=== PATIENT | male | born 1945 ===

== ENCOUNTER 2017-01-14 11:12 | Inpatient (IN) | payer OTHER ==
[2017-01-14 11:17] VITALS: BMI 25.9
--- NOTE | 2017-01-14 13:38 | CP.PCM.CON ---
Past Patient History - Infectious Disease Hx of Infectious Diseases: None - Past Medical History & Family History Past Medical History?: No - Past Social History Smoking Status: Former Smoker - CARDIAC Hx Hypertension: Yes - ENDOCRINE/METABOLIC Hx Endocrine Disorders: Yes (DM) - MUSCULOSKELETAL/RHEUMATOLOGICAL Hx Falls: No - PSYCHIATRIC Hx Substance Use: No - SURGICAL HISTORY Other/Comment: Bilateral TMA - ANESTHESIA Hx Anesthesia: Yes Hx Anesthesia Reactions: No Meds Allergies/Adverse Reactions: Allergies Allergy/AdvReac Type Severity Reaction Status Date / Time No Known Allergies Allergy Verified 04/23/16 11:34 Results - Vital Signs Recent Vital Signs: Last Vital Signs Temp 98.4 F 01/14/17 11:18 Pulse 86 01/14/17 11:18 Resp 19 01/14/17 11:18 BP 149/64 01/14/17 11:18 Pulse Ox 100 01/14/17 11:18
[2017-01-14 13:39] LABS: BASO # 0.1 K/uL (0.0-0.2); BASO % 0.7 % (0.0-2.0); EOS # 0.1 K/uL (0.0-0.7); EOS % 0.6 % (0.0-4.0); HEMATOCRIT 33.6 % (35.0-51.0); LYMPH # 0.9 K/uL (1.0-4.3); LYMPH % 8.3 % (20.0-40.0); MEAN CELL VOLUME 81.7 fl (80.0-94.0); MEAN CORPUSCULAR HGB CONC 35.6 g/dL (33.0-37.0); MEAN PLATELET VOLUME 6.6 fl (7.2-11.7); MONO % 9.8 % (0.0-10.0); NEUT # 8.6 K/uL (1.8-7.0); NEUT % 80.6 % (50.0-75.0); NRBC % 0.1 % (0.0-0.0); RED CELL DISTRIBUTION WIDTH 14.1 % (11.5-14.5); WHITE BLOOD COUNT 10.7 K/uL (4.8-10.8)
[2017-01-14 13:45] LABS: CHLORIDE 86 mmol/L (98-107); SODIUM 128 mmol/l (132-148)
[2017-01-14 13:46] LABS: POTASSIUM 3.9 MMOL/L (3.6-5.0)
[2017-01-14 13:48] LABS: ALKALINE PHOSPHATASE 74 U/L (38-126); ALT/SGPT 29 U/L (21-72); AST/SGOT 36 U/L (17-59); BLOOD UREA NITROGEN 20 mg/dl (9-20); CARBON DIOXIDE 28 mmol/L (22-30); GFR AFRICAN-AMERICAN > 60; GLUCOSE,RANDOM 271 mg/dL (75-110); TOTAL PROTEIN 7.4 G/DL (6.3-8.2)
[2017-01-14 13:49] LABS: CALCIUM 9.1 mg/dL (8.4-10.2)
--- NOTE | 2017-01-14 13:56 | ED PDOC ---
Lower Extremity Pain/Injury Time Seen by Provider: 01/14/17 12:14 Chief Complaint (Nursing): Lower Extremity Problem/Injury Additional Complaint(s): 71yo With DM and HTN 3d ago noted to lower right leg with redness and burning and redness pain with ulcer to bottom of TMA stump. no fever chills no nausea vomiting. - Risk Factors DVT Risk Factors: Pos: None Past Medical History Reviewed: Historical Data, Nursing Documentation, Vital Signs Vital Signs: Last Vital Signs Temp 98.4 F 01/14/17 11:18 Pulse 86 01/14/17 11:18 Resp 19 01/14/17 11:18 BP 149/64 01/14/17 11:18 Pulse Ox 100 01/14/17 11:18 - Medical History PMH: Diabetes, HTN - Family History Family History: States: No Known Family Hx - Home Medications Home Medications: Ambulatory Orders Medication Instructions Recorded Aspirin [Ecotrin] 81 mg PO QPM 04/23/16 Atorvastatin [Lipitor] 20 mg PO DAILY 04/23/16 Clopidogrel [Plavix] 75 mg PO QPM 04/23/16 Glipizide [Glipizide Xl] 10 mg PO BID 04/23/16 Lisinopril/Hydrochlorothiazide 1 tab PO BID 04/23/16 [Zestoretic 20-25 mg Tablet] MetFORMIN [glucoPHAGE] 1,000 mg PO BID 04/23/16 Multivitamin [Multi-Vitamin Daily] 1 tab PO DAILY 04/23/16 [place]-3 Fatty Acids/Fish Oil [Fish 1 gm PO BID 04/23/16 Oil 1,000 mg Capsule] amLODIPine [Norvasc] 10 mg PO QPM 04/23/16 - Allergies Allergies/Adverse Reactions: Allergies Allergy/AdvReac Type Severity Reaction Status Date / Time No Known Allergies Allergy Verified 04/23/16 11:34 Review of Systems ROS Statement: Except As Marked, All Systems Reviewed And Found Negative Constitutional: Negative for: Fever, Chills Respiratory: Negative for: Cough, Shortness of Breath Gastrointestinal: Negative for: Nausea, Vomiting Physical Exam - Reviewed Nursing Documentation Reviewed: Yes Vital Signs Reviewed: Yes - Physical Exam Appears: Positive for: Well, Non-toxic, No Acute Distress Head Exam: Positive for: ATRAUMATIC, NORMAL INSPECTION, NORMOCEPHALIC Skin: Positive for: Warm Cardiovascular/Chest: Positive for: Regular Rate, Rhythm Respiratory: Positive for: CNT, Normal Breath Sounds Extremity: Positive for: Other (right lower leg-reddness, warmth, tenderness strekaing no flucutance mild swelling. ulcer noted to botto of stump no drainage ) Neurologic/Psych: Positive for: Alert, Oriented - Laboratory Results Result Diagrams: 01/14/17 13:25 01/14/17 13:25 - ECG O2 Sat by Pulse Oximetry: 100 - Progress ED Course And Treament: pt is ANU Malone pt and will get evaluated by podiatry Medical Decision Making Medical Decision Making: Pt will be admitted for cellulites under MD Eli with podiatry consult and Abdoulaye SULLIVAN consult Disposition - Clinical Impression Clinical Impression: Cellulitis - Patient ED Disposition Is Patient to be Admitted: Yes - Disposition Disposition Time: 14:51 Condition: STABLE - Pt Status Changed To: Hospital Disposition Of: Inpatient - Admit Certification Admit to Inpatient:: After my assessment, the patient will require hospitalization for at least two midnights. This is because of the severity of symptoms shown, intensity of services needed, and/or the medical risk in this patient being treated as an outpatient.
[2017-01-14 13:57] LABS: ALB/GLOB RATIO 1.2 (1.0-2.1)
[2017-01-14 14:03] LABS: PLATELET COUNT 356 K/uL (130-400)
[2017-01-14 14:09] LABS: PARTIAL THROMBOPLASTIN TIME 30.4 SECONDS (23.3-32.5)
[2017-01-14 14:23] LABS: BILIRUBIN,TOTAL 0.8 mg/dl (0.2-1.3)
[2017-01-14 14:29] LABS: NEUTROPHIL 89 % (42-75); REACTIVE LYMPHOCYTES 2 % (0-0); TOTAL CELLS COUNTED 100
--- NOTE | 2017-01-14 15:10 | CP.PCM.CON ---
History of Present Illness - History of Present Illness History of Present Illness: 71 year old male with PMHx of DM ,HTN, Hyperlipedemia presents to the ED with complains of redness to right leg for 3 days. He states that three days ago he went for a walk and then started noticing redness to his right leg. He states it has gotten worse in the past [address] Malone in office today who sent him to the ED. He admits to burning pain on the leg. He admits to chills, but denies n/v/f/sob/cp. Past Patient History - Infectious Disease Hx of Infectious Diseases: None - Past Medical History & Family History Past Medical History?: No - Past Social History Smoking Status: Former Smoker - CARDIAC Hx Hypertension: Yes - ENDOCRINE/METABOLIC Hx Endocrine Disorders: Yes (DM) - MUSCULOSKELETAL/RHEUMATOLOGICAL Hx Falls: No - PSYCHIATRIC Hx Substance Use: No - SURGICAL HISTORY Other/Comment: Bilateral TMA - ANESTHESIA Hx Anesthesia: Yes Hx Anesthesia Reactions: No Meds Allergies/Adverse Reactions: Allergies Allergy/AdvReac Type Severity Reaction Status Date / Time No Known Allergies Allergy Verified 04/23/16 11:34 Physical Exam - Constitutional Appears: Well, Non-toxic, No Acute Distress - Extremities Exam Additional comments: VASC: DP pulse 1/4, PT pulse 2/4, Temperature gradient runs warm to warm distal to proximal. NEURO: Gross sensation diminished. ORTHO: TMA stumpes noted b/l. Mild pain on palpation to right leg or foot. DERM: Ulceration measure approximately 0.4 cm x 0.4 cm x 0.3 cm noted on the plantar aspect of the right foot around the 4th and 5th metatarsal,base is granular, periwound is hyperkeratotic. No probe to bone, scant amount of sanguineous drainage noted. No tenderness, no malodor. Right foot and Right lee are erythematous with non-pitting edema with increased warmth noted. No drainage, no purulences, no fluctuance. - Neurological Exam Neurological exam: Alert, Oriented x3 - Psychiatric Exam Psychiatric exam: Normal Affect, Normal Mood Results - Vital Signs Recent Vital Signs: Last Vital Signs Temp 98.4 F 01/14/17 11:18 Pulse 86 01/14/17 11:18 Resp 19 01/14/17 11:18 BP 149/64 01/14/17 11:18 Pulse Ox 100 01/14/17 14:51 - Labs Result Diagrams: 01/14/17 13:25 01/14/17 13:25 Labs: Laboratory Results - last 24 hr 01/14/17 13:25 WBC 10.7 RBC 4.11 L Hgb 11.9 L Hct 33.6 L MCV 81.7 D MCH 29.0 MCHC 35.6 RDW 14.1 Plt Count 356 D MPV 6.6 L Neut % (Auto) 80.6 H Lymph % (Auto) 8.3 L [place] % (Auto) 9.8 Eos % (Auto) 0.6 Baso % (Auto) 0.7 Neut # 8.6 H Lymph # 0.9 L [place] # 1.0 H Eos # 0.1 Baso # 0.1 Neutrophils % (Manual) 89 H Lymphocytes % (Manual) 5 L Reactive Lymphs % 2 H Monocytes % (Manual) 4 Toxic Granulation Present Platelet Estimate Normal Hypochromasia (manual) Slight PT 11.8 H INR 1.13 H APTT 30.4 Sodium 128 L Potassium 3.9 Chloride 86 L Carbon Dioxide 28 Anion Gap 18 BUN 20 Creatinine 0.7 L Est GFR ( Amer) > 60 Est GFR (Non-Af Amer) > 60 Random Glucose 271 H Calcium 9.1 Total Bilirubin 0.8 AST 36 ALT 29 Alkaline Phosphatase 74 Total Protein 7.4 Albumin 4.0 Globulin 3.4 Albumin/Globulin Ratio 1.2 Assessment & Plan - Assessment and Plan (Free Text) Assessment: 71 year old male with right foot plantar ulcer secondary to diabetes and right lower extremity cellulits Plan: Patient examined and evaluated Chart, labs, vitals reviewed: afebrile, WBC 10.7 Discussed in detail with attending, Dr. Faisal Ann 3.375 gm Q 6 IVPB Right foot xray ordered ID consulted- Podiatry will continue to follow patient while in house
--- NOTE | 2017-01-14 15:33 | CP.PCM.HP ---
<Lashell Bauer - Last Filed: 01/14/17 17:18> History of Present Illness - History of Present Illness History of Present Illness: Pt seen and examined at bedside with attending. 71M p/w 3 days worsening RIGHT distal extremity erythema with associated discomfort but denies fevers, chills. Currently he denies any other complaints to include no SOB, chest pain, palpitations, N/V, abdominal pain, dysuria. PMH: DM, HTN PSH: b/l TMA ALL: NKDA Meds: See Med Rec Present on Admission - Present on Admission Any Indicators Present on Admission: Yes History of Uncontrolled Diabetes: Yes Review of Systems - Review of Systems All systems: reviewed and no additional remarkable complaints except (As per HPI ) Past Patient History - Infectious Disease Hx of Infectious Diseases: None - Past Medical History & Family History Past Medical History?: No - Past Social History Smoking Status: Former Smoker - CARDIAC Hx Hypertension: Yes - ENDOCRINE/METABOLIC Hx Endocrine Disorders: Yes (DM) - MUSCULOSKELETAL/RHEUMATOLOGICAL Hx Falls: No - PSYCHIATRIC Hx Substance Use: No - SURGICAL HISTORY Other/Comment: Bilateral TMA - ANESTHESIA Hx Anesthesia: Yes Hx Anesthesia Reactions: No Meds Allergies/Adverse Reactions: Allergies Allergy/AdvReac Type Severity Reaction Status Date / Time No Known Allergies Allergy Verified 04/23/16 11:34 Physical Exam - Constitutional Appears: Well, Non-toxic, No Acute Distress - Head Exam Head Exam: ATRAUMATIC, NORMAL INSPECTION - Eye Exam Eye Exam: EOMI, Normal appearance - ENT Exam ENT Exam: Mucous Membranes Moist, Normal Exam - Neck Exam Neck exam: Positive for: Full Rom, Normal Inspection - Respiratory Exam Respiratory Exam: Clear to Auscultation Bilateral, NORMAL BREATHING PATTERN. absent: Wheezes - Cardiovascular Exam Cardiovascular Exam: REGULAR RHYTHM. absent: JVD - GI/Abdominal Exam GI & Abdominal Exam: Normal Bowel Sounds, Soft. absent: Tenderness - Extremities Exam Extremities exam: Positive for: normal capillary refill. Negative for: normal inspection (b/l TMA, hyperpigmentation c/w PVD, chronic venous stasis), pedal edema, tenderness - Expanded Lower Extremities Exam Right Lower Leg Exam: erythema. absent: crepitus, tenderness Ankle exam: erythema. absent: tenderness Foot/Toe exam: amputation (TMA), erythema, tenderness at base of 5th metatarsal (ulceration when probed is ~0.5cm). absent: crepitus - Neurological Exam Neurological exam: Alert, Oriented x3 - Psychiatric Exam Psychiatric exam: Normal Affect, Normal Mood - Skin Skin Exam: Dry, Normal Color Results - Vital Signs Recent Vital Signs: Last Vital Signs Temp 36.9 C 01/14/17 11:18 Pulse 86 01/14/17 11:18 Resp 19 01/14/17 11:18 BP 149/64 01/14/17 11:18 Pulse Ox 100 01/14/17 14:51 - Labs Result Diagrams: 01/14/17 13:25 01/14/17 13:25 Labs: Laboratory Results - last 24 hr 01/14/17 13:25 WBC 10.7 RBC 4.11 L Hgb 11.9 L Hct 33.6 L MCV 81.7 D MCH 29.0 MCHC 35.6 RDW 14.1 Plt Count 356 D MPV 6.6 L Neut % (Auto) 80.6 H Lymph % (Auto) 8.3 L [place] % (Auto) 9.8 Eos % (Auto) 0.6 Baso % (Auto) 0.7 Neut # 8.6 H Lymph # 0.9 L [place] # 1.0 H Eos # 0.1 Baso # 0.1 Neutrophils % (Manual) 89 H Lymphocytes % (Manual) 5 L Reactive Lymphs % 2 H Monocytes % (Manual) 4 Toxic Granulation Present Platelet Estimate Normal Hypochromasia (manual) Slight PT 11.8 H INR 1.13 H APTT 30.4 Sodium 128 L Potassium 3.9 Chloride 86 L Carbon Dioxide 28 Anion Gap 18 BUN 20 Creatinine 0.7 L Est GFR ( Amer) > 60 Est GFR (Non-Af Amer) > 60 Random Glucose 271 H Calcium 9.1 Total Bilirubin 0.8 AST 36 ALT 29 Alkaline Phosphatase 74 Total Protein 7.4 Albumin 4.0 Globulin 3.4 Albumin/Globulin Ratio 1.2 Assessment & Plan (2) Controlled type 2 diabetes mellitus with hyperglycemia Assessment and Plan: Controlled at this time, c/w home medications EXCEPT Metformin which will be held in the event contrast imaging pursued. - c/w home medications - Hypoglycemia bundle - Accu-checks - SSI, Low Status: Chronic (3) DVT prophylaxis Assessment and Plan: Lovenox 40mg, SC, Daily Status: Acute (4) Essential (primary) hypertension Assessment and Plan: Controlled, c/w home medications Status: Chronic (5) Cellulitis Assessment and Plan: Erythema w/ mild edema at distal RLE, no fluctuance, suspect progressing from punctate hole at 4-5th MCP, X-ray negative for soft-tissue air. - Glucose control - Mgmnt as per Podiatry - Zosyn 3.375mg, IV, Q6H Status: Acute <Deshawn Benitez - Last Filed: 01/30/17 15:35> Results - Vital Signs Recent Vital Signs: Last Vital Signs Temp 97.9 F 01/23/17 08:24 Pulse 64 01/23/17 08:24 Resp 20 01/23/17 08:24 BP 128/73 01/23/17 08:24 Pulse Ox 99 01/23/17 08:24 - Labs Result Diagrams: 01/22/17 05:50 01/22/17 05:50 Assessment & Plan - Assessment and Plan (Free Text) Assessment: Patient was personally seen and examined by me in rounds with residents. Available labs and diagnostic data reviewed. Case, Patient's condition and management plan discussed with residents in rounds. Agree with resident's documentation. Plan: As ordered. Deshawn Benitez MD
[2017-01-14] MEDS ORDERED: Piperacillin/Tazobact 3.375 gm Inj IVPB ONE (15:51)
[2017-01-14] MEDS: Piperacillin/Tazobact 3.375 GM in Sodium Chloride 0.9% 100 ML IVPB SCH ×2 (16:04→22:15)
[2017-01-14] MEDS ORDERED: Oxycodone/Acetaminophen 5/325 mg Tab PO STA (16:17)
[2017-01-14] MEDS ORDERED: Oxycodone/Acetaminophen 5/325 mg Tab ONE (16:28)
[2017-01-14] MEDS ORDERED: Dextrose 50% SYRINGE Inj (50 ml) IV PRN (16:46)
[2017-01-14] MEDS ORDERED: Glucagon Recombinant 1 mg Inj IM PRN (16:46)
[2017-01-14] MEDS ORDERED: OMEGA PO SCH (17:00)
[2017-01-14] MEDS ORDERED: FATTY ACIDS PO SCH (17:00)
[2017-01-14] MEDS ORDERED: HYDROCHLOROTHIAZIDE PO SCH (17:00)
[2017-01-14] MEDS ORDERED: LISINOPRIL PO SCH (17:00)
[2017-01-14] MEDS ORDERED: FISH OIL PO SCH (17:00)
--- NOTE | 2017-01-14 17:06 | RAD ---
PROCEDURE: Right Foot Radiographs. HISTORY: right heel ulcer COMPARISON: None. FINDINGS: BONES: Postoperative findings related to forefoot amputation. Diffuse osteopenia identified. Incompletely visualized orthopedic hardware distal tibia and fibula. JOINTS: Degenerate/neuropathic changes. SOFT TISSUES: Soft tissue swelling at the site of the amputation. OTHER FINDINGS: None. IMPRESSION: Soft tissue swelling without acute articular or osseous abnormality.
[2017-01-14] MEDS: GlipiZIDE 10 mg SR Tab PO SCH (19:17)
[2017-01-14] MEDS: Enoxaparin 40 mg Syringe SC SCH (21:46)
[2017-01-14] MEDS ORDERED: Insulin Lispro (humaLOG) 100 Units/ml Inj SC SCH (23:35)
[2017-01-14] MEDS ORDERED: Oxycodone/Acetaminophen 5/325 mg Tab PO PRN (23:35)
[2017-01-14] MEDS ORDERED: guaiFENesin DM 200 mg-20 mg/10 ml UD PO PRN (23:35)
[2017-01-15] MEDS: Piperacillin/Tazobact 3.375 GM in Sodium Chloride 0.9% 100 ML IVPB SCH ×4 (03:16→22:01)
--- NOTE | 2017-01-15 07:17 | CP.PCM.PN ---
<Lashell Bauer - Last Filed: 01/15/17 09:46> Subjective - Date & Time of Evaluation Date of Evaluation: 01/15/17 Time of Evaluation: :17 - Subjective Subjective: 71M seen and examined at bedside with attending. Pt reports feeling better, denies SOB, chest pain, diarrhea, but having mild neuropathic type foot pain. Objective - Vital Signs/Intake and Output Vital Signs (last 24 hours): Temp Pulse Resp BP Pulse Ox 37.3 C 90 16 150/70 97 01/14/17 22:00 01/14/17 22:00 01/14/17 22:00 01/14/17 22:00 01/14/17 22:00 - Medications Medications: Current Medications Amlodipine Besylate (Norvasc) 10 mg PO QPM [facility] Last Admin: 01/14/17 19:18 Dose: 10 mg Aspirin (Ecotrin) 81 mg PO QPM [facility] Last Admin: 01/14/17 19:19 Dose: 81 mg Atorvastatin Calcium (Lipitor) 20 mg PO DAILY [facility] Clopidogrel Bisulfate (Plavix) 75 mg PO QPM [facility] Last Admin: 01/14/17 20:07 Dose: 75 mg Dextrose (Glutose 15) 0 gm PO ONCE PRN; Protocol PRN Reason: Hypoglycemia Protocol Dextrose (Dextrose 50% Inj) 0 ml IV STAT PRN; Protocol PRN Reason: Hyglycemia Protocol Enoxaparin Sodium (Lovenox) 40 mg SC DAILY [facility] PRN Reason: Protocol Last Admin: 01/14/17 21:46 Dose: 40 mg Glipizide (Glucotrol Xl) 10 mg PO BID [facility] Last Admin: 01/14/17 19:17 Dose: 10 mg Glucagon (Glucagen Diagnostic Kit) 0 mg IM STAT PRN; Protocol PRN Reason: Hypoglycemia Protocol Guaifenesin/Dextromethorphan (Robitussin Dm) 10 ml PO Q6 PRN PRN Reason: Cough Home Med (Lisinopril/Hydrochlorothiazide [Zestoretic 20-25 Mg Tablet]) 1 tab PO BID [facility] Last Admin: 01/14/17 19:39 Dose: Not Given Home Med (Multivitamin [Multi-Vitamin Daily]) 1 tab PO DAILY [facility] Hydrochlorothiazide (Hydrodiuril) 25 mg PO DAILY [facility] Piperacillin Sod/Tazobactam (Sod 3.375 gm/ Sodium Chloride) 100 mls @ 100 mls/ hr IVPB Q6 [facility] Last Admin: 01/15/17 03:16 Dose: 100 mls/hr Insulin Human Lispro (Humalog) 0 units SC ACHS [facility] PRN Reason: Protocol Lisinopril (Zestril) 20 mg PO DAILY [facility] Multivitamins/Minerals (Therapeutic-M Tab) 1 tab PO DAILY [facility] [id number] Ethyl Esters (Lovaza) 1 gm PO BID [facility] Oxycodone/Acetaminophen (Percocet 5/325 Mg Tab) 1 tab PO Q6 PRN PRN Reason: Pain, moderate (4-7) Stop: 01/17/17 23:36 - Labs Labs: PT 11.8 SECONDS (9.6-11.2) H 01/14/17 13:25 INR 1.13 (0.92-1.08) H 01/14/17 13:25 APTT 30.4 SECONDS (23.3-32.5) 01/14/17 13:25 - Constitutional Appears: Well, Non-toxic, No Acute Distress - Head Exam Head Exam: ATRAUMATIC, NORMAL INSPECTION - Eye Exam Eye Exam: EOMI, Normal appearance - ENT Exam ENT Exam: Mucous Membranes Moist, Normal Exam - Respiratory Exam Respiratory Exam: Clear to Ausculation Bilateral, NORMAL BREATHING PATTERN. absent: Rales, Wheezes - Cardiovascular Exam Cardiovascular Exam: REGULAR RHYTHM - GI/Abdominal Exam GI & Abdominal Exam: Soft, Normal Bowel Sounds. absent: Tenderness - Extremities Exam Extremities Exam: Normal Capillary Refill. absent: Normal Inspection, Pedal Edema Additional comments: Right Lower Leg Exam: improved erythema. absent: crepitus, tenderness Ankle exam: trace erythema. absent: tenderness Foot/Toe exam: amputation (TMA), erythema, tenderness at base of 5th metatarsal (ulceration when probed is ~0.5cm), draining serosanginous. absent: crepitus - Neurological Exam Neurological Exam: Alert, Awake, Oriented x3 - Psychiatric Exam Psychiatric exam: Normal Affect, Normal Mood - Skin Skin Exam: Normal Color, Warm Assessment and Plan (1) Cellulitis Assessment & Plan: Slight improvement of erythema w/o edema at distal RLE, no fluctuance. Punctate hole at 4-5th MCP drainingserosanginous fluid., - Glucose control - Mgmnt as per Podiatry: RIGHT foot X-ray w/o for soft-tissue air/bony involvement, c/w IV abx, ID consult, wound cx. - c/w Zosyn 3.375mg, IV, Q6H - f/u ID Consult (Dr Alejandra) recs - Gabapentin for discomfort Status: Acute (2) Controlled type 2 diabetes mellitus with hyperglycemia Assessment & Plan: Poorly controlled at this time, will add Levemir and SSI as well. - c/w home medications EXCEPT Metformin - Hypoglycemia bundle - Accu-checks - SSI, MOD w/ 4U ACTID - TDD: 24 (0.3kg/day) - Levemir 12U, SC, qHS Status: Chronic (3) DVT prophylaxis Assessment & Plan: Lovenox 40mg, SC, Daily Status: Acute (4) Essential (primary) hypertension Assessment & Plan: Controlled, c/w home medications Status: Chronic <Deshawn Benitez - Last Filed: 01/30/17 15:39> Objective - Vital Signs/Intake and Output Vital Signs (last 24 hours): Temp Pulse Resp BP Pulse Ox 97.9 F 64 20 128/73 99 01/23/17 08:24 01/23/17 08:24 01/23/17 08:24 01/23/17 08:24 01/23/17 08:24 - Labs Labs: 01/22/17 05:50 01/22/17 05:50 PT 11.8 SECONDS (9.6-11.2) H 01/14/17 13:25 INR 1.13 (0.92-1.08) H 01/14/17 13:25 APTT 30.4 SECONDS (23.3-32.5) 01/14/17 13:25 Assessment and Plan - Assessment and Plan (Free Text) Assessment: Patient was personally seen and examined by me in rounds with residents. Available labs and diagnostic data reviewed. Case, Patient's condition and management plan discussed with residents in rounds. Agree with resident's documentation. Plan: As ordered. Deshawn Benitez MD
[2017-01-15] MEDS ORDERED: Insulin Lispro (humaLOG) 100 Units/ml Inj SC SCH (07:30)
[2017-01-15 07:38] LABS: BASO % 0.4 % (0.0-2.0); HEMATOCRIT 31.6 % (35.0-51.0); LYMPH # 0.9 K/uL (1.0-4.3); LYMPH % 7.8 % (20.0-40.0); MEAN CELL VOLUME 83.1 fl (80.0-94.0); MEAN CORPUSCULAR HEMOGLOBIN 28.2 pg (27.0-31.0); MEAN PLATELET VOLUME 6.6 fl (7.2-11.7); MONO # 1.3 K/uL (0.0-0.8); MONO % 11.7 % (0.0-10.0); NEUT % 80.1 % (50.0-75.0); RED CELL DISTRIBUTION WIDTH 14.4 % (11.5-14.5); WHITE BLOOD COUNT 11.2 K/uL (4.8-10.8)
[2017-01-15 07:44] LABS: ALKALINE PHOSPHATASE 66 U/L (38-126); ALT/SGPT 22 U/L (21-72); AST/SGOT 30 U/L (17-59); BILIRUBIN,TOTAL 0.6 mg/dl (0.2-1.3); BLOOD UREA NITROGEN 17 mg/dl (9-20); CALCIUM 8.6 mg/dL (8.4-10.2); CARBON DIOXIDE 27 mmol/L (22-30); CHLORIDE 90 mmol/L (98-107); GFR AFRICAN-AMERICAN > 60; GLUCOSE,RANDOM 279 mg/dL (75-110); POTASSIUM 3.9 MMOL/L (3.6-5.0); SODIUM 131 mmol/l (132-148); TOTAL PROTEIN 6.5 G/DL (6.3-8.2)
--- NOTE | 2017-01-15 07:57 | CP.PCM.PN ---
Subjective - Date & Time of Evaluation Date of Evaluation: 01/15/17 Time of Evaluation: 07:56 - Subjective Subjective: 71 year old male was seen resting comfortably at bedside regarding redness to the right lower extremity for 3 days with right foot plantar ulcer. He states he is feeling better today. Denies any pain to his lower extremities. Patient is in no acute distress, AAOx3. He denies any n/v/f/c/sob/cp. Objective - Vital Signs/Intake and Output Vital Signs (last 24 hours): Temp Pulse Resp BP Pulse Ox 99.5 F 74 20 119/62 94 L 01/15/17 07:40 01/15/17 07:40 01/15/17 07:40 01/15/17 07:40 01/15/17 07:40 - Medications Medications: Current Medications Amlodipine Besylate (Norvasc) 10 mg PO QPM [facility] Last Admin: 01/14/17 19:18 Dose: 10 mg Aspirin (Ecotrin) 81 mg PO QPM [facility] Last Admin: 01/14/17 19:19 Dose: 81 mg Atorvastatin Calcium (Lipitor) 20 mg PO DAILY [facility] Clopidogrel Bisulfate (Plavix) 75 mg PO QPM [facility] Last Admin: 01/14/17 20:07 Dose: 75 mg Dextrose (Glutose 15) 0 gm PO ONCE PRN; Protocol PRN Reason: Hypoglycemia Protocol Dextrose (Dextrose 50% Inj) 0 ml IV STAT PRN; Protocol PRN Reason: Hyglycemia Protocol Enoxaparin Sodium (Lovenox) 40 mg SC DAILY [facility] PRN Reason: Protocol Last Admin: 01/14/17 21:46 Dose: 40 mg Glipizide (Glucotrol Xl) 10 mg PO BID [facility] Last Admin: 01/14/17 19:17 Dose: 10 mg Glucagon (Glucagen Diagnostic Kit) 0 mg IM STAT PRN; Protocol PRN Reason: Hypoglycemia Protocol Guaifenesin/Dextromethorphan (Robitussin Dm) 10 ml PO Q6 PRN PRN Reason: Cough Home Med (Lisinopril/Hydrochlorothiazide [Zestoretic 20-25 Mg Tablet]) 1 tab PO BID [facility] Last Admin: 01/14/17 19:39 Dose: Not Given Home Med (Multivitamin [Multi-Vitamin Daily]) 1 tab PO DAILY [facility] Hydrochlorothiazide (Hydrodiuril) 25 mg PO DAILY [facility] Piperacillin Sod/Tazobactam (Sod 3.375 gm/ Sodium Chloride) 100 mls @ 100 mls/ hr IVPB Q6 [facility] Last Admin: 01/15/17 03:16 Dose: 100 mls/hr Insulin Human Lispro (Humalog) 0 units SC ACHS [facility] PRN Reason: Protocol Last Admin: 01/15/17 07:20 Dose: Not Given Lisinopril (Zestril) 20 mg PO DAILY [facility] Multivitamins/Minerals (Therapeutic-M Tab) 1 tab PO DAILY [facility] [id number] Ethyl Esters (Lovaza) 1 gm PO BID [facility] Oxycodone/Acetaminophen (Percocet 5/325 Mg Tab) 1 tab PO Q6 PRN PRN Reason: Pain, moderate (4-7) Stop: 01/17/17 23:36 - Labs Labs: 01/15/17 06:30 01/15/17 06:30 PT 11.8 SECONDS (9.6-11.2) H 01/14/17 13:25 INR 1.13 (0.92-1.08) H 01/14/17 13:25 APTT 30.4 SECONDS (23.3-32.5) 01/14/17 13:25 - Constitutional Appears: Well, Non-toxic, No Acute Distress - Extremities Exam Additional comments: Right lower extremity focused exam: VASC: DP pulse palpable 2/4, PT pulse 2/4, Temperature gradient runs warm to warm distal to proximal. NEURO: Gross sensation diminished. ORTHO: Previous TMA amputation sites noted b/l. No pain on palpation to right leg or foot. DERM: Ulceration measure approximately 0.4 cm x 0.4 cm x 0.3 cm noted on the plantar aspect of the right foot around the 4th and 5th metatarsal bases,base is granular, periwound is hyperkeratotic. No probe to bone, scant amount of sanguineous drainage noted. No tenderness, no malodor, no probe to bone noted. Right foot and Right lee are erythematous with non-pitting edema with increased warmth noted. No drainage, no purulences, no fluctuance. - Neurological Exam Neurological Exam: Alert, Awake, Oriented x3 - Psychiatric Exam Psychiatric exam: Normal Affect, Normal Mood Assessment and Plan - Assessment and Plan (Free Text) Assessment: 71 year old male with right foot plantar ulcer secondary to diabetes and right lower extremity cellulits Plan: Patient examined and evaluated Chart, labs, vitals reviewed: afebrile, WBC 11.2 Discussed in detail with attending, Dr. Faisal Pizano Zosyn 3.375 gm Q 6 IVPB Right foot radiographs- soft tissue swelling without acute articular or osseous abnormality Wound culture obtained from right foot plantar ulceration ID consulted- Right foot dressed with DSD Podiatry will continue to follow patient while in house
[2017-01-15] MEDS: GlipiZIDE 10 mg SR Tab PO SCH ×2 (08:48→17:17)
[2017-01-15] MEDS: Omega-3-Acid Ethyl Esters 1 GM Cap PO SCH ×2 (08:49→17:18)
[2017-01-15] MEDS: Enoxaparin 40 mg Syringe SC SCH (08:49)
[2017-01-15] MEDS: Multivitamin With Minerals Tab PO SCH (08:50)
[2017-01-15] MEDS ORDERED: Patient's Own Med (Multivitamin [Multi-Vitamin Daily] 1 TAB) PO SCH (09:00)
[2017-01-15] MEDS: Insulin Lispro (humaLOG) 100 Units/ml Inj SC SCH ×5 (12:44→22:12)
--- NOTE | 2017-01-15 17:46 | CP.PCM.CON ---
History of Present Illness - History of Present Illness History of Present Illness: 71 year old male presents to the ED with complains of redness to right leg for 3 days. Has hx of maurizio SCHULZ He states that three days ago he went for a walk and then started noticing redness to his right leg. He states it has gotten worse in the past 3 days. PMHx of DM ,HTN, Hyperlipidemia , PVD, bilat TMA's Review of Systems - Constitutional Constitutional: As Per HPI - EENT Eyes: absent: As Per HPI, Blind Spots, Blurred Vision, Change in Vision, Decreased Night Vision, Diplopia, Discharge, Dry Eye, Exophthalmos, Floaters, Irritation, Itchy Eyes, Loss of Peripheral Vision, Pain, Photophobia, Requires Corrective Lenses, Sees Flashes, Spots in Vision, Tunnel Vision, Other Visual Disturbances, Loss of Vision, Other Ears: absent: As Per HPI, Decreased Hearing, Ear Discharge, Ear Pain, Tinnitus, Abnormal Hearing, Disequilibrium, Dizziness, Other Nose/Mouth/Throat: absent: As Per HPI, Epistaxis, Nasal Congestion, Nasal Discharge, Nasal Obstruction, Nasal Trauma, Nose Pain, Post Nasal Drip, Sinus Pain, Sinus Pressure, Bleeding Gums, Change in Voice, Dental Pain, Dry Mouth, Dysphagia, Halitosis, Hoarsness, Lip Swelling, Mouth Lesions, Mouth Pain, Odynophagia, Sore Throat, Throat Swelling, Tongue Swelling, Facial Pain, Neck Pain, Neck Mass, Other - Cardiovascular Cardiovascular: absent: As Per HPI, Acrocyanosis, Chest Pain, Chest Pain at Rest , Chest Pain with Activity, Claudication, Diaphoresis, Dyspnea, Dyspnea on Exertion, Edema, Irregular Heart Rhythm, Pain Radiating to Arm/Neck/Jaw, Leg Edema, Leg Ulcers, Lightheadedness, Orthopnea, Palpitations, Paroxysmal Nocturnal Dyspnea, Pedal Edema, Radiating Pain, Rapid Heart Rate, Slow Heart Rate, Syncope, Other - Respiratory Respiratory: absent: As Per HPI, Cough, Dyspnea, Hemoptysis, Dyspnea on Exertion , Wheezing, Snoring, Stridor, Pain on Inspiration, Chest Congestion, Excessive Mucous Production, Change in Mucous Color, Pain with Coughing, Other - Gastrointestinal Gastrointestinal: absent: As Per HPI, Abdominal Pain, Belching, Bloating, Change in Bowel Habits, Change in Stool Character, Coffee Ground Emesis, Constipation, Cramping, Diarrhea, Dyspepsia, Dysphagia, Early Satiety, Excessive Flatus, Fecal Incontinence, Heartburn, Hematemesis, Hematochezia, Loose Stools, Melena, Nausea, Odynophagia, Temesmus, Vomiting, Other - Genitourinary Genitourinary: absent: As Per HPI, Change in Urinary Stream, Difficulty Urinating, Dysuria, Flank Pain, Hematuria, Pyuria, Nocturia, Urinary Incontinence, Urinary Frequency, Urinary Hesitance, Urinary Urgency, Voiding Freq/Small Amts, Freq UTI, Hx Renal/Bladder Calculi, Hx /Renal Surgery, Bladder Distension, Other - Musculoskeletal Musculoskeletal: As Per HPI - Integumentary Integumentary: As Per HPI, Skin Pain, Wounds - Neurological Neurological: absent: Abnormal Gait, Abnormal Hearing, Abnormal Movements, Abnormal Speech, Behavioral Changes, Burning Sensations, Confusion, Convulsions , Disequilibrium, Dizziness, Numbness, Focal Weakness, Frequent Falls, Headaches , Lack of Coordination, Loss of Vision, Memory Loss, Paresthesias, Radicular Pain, Restless Legs, Sensory Deficit, Syncope, Tingling, Tremor, Vertigo, Weakness, Other Visual Disturbances, Other - Psychiatric Psychiatric: absent: As Per HPI, Abnormal Sleep Pattern, Anhedonia, Anxiety, Auditory Hallucinations, Behavioral Changes, Change in Appetite, Change in Libido, Confusion, Depression, Difficulty Concentrating, Hallucinations, Homicidal Ideation, Hopelessness, Irritability, Memory Loss, Mood Swings, Panic Attacks, Paranoia, Suicidal Ideation, Visual Hallucinations, Tactile Hallucinations, Other - Endocrine Endocrine: absent: As Per HPI, Change in Body Appearance, Change in Libido, Cold Intolorance, Deepening of Voice, Excessive Sweating, Fatigue, Flushing, Heat Intolorance, Increase in Ring/Shoe/Hat Size, Palpitations, Polydipsia, Polyphagia, Polyuria, Other - Hematologic/Lymphatic Hematologic: absent: As Per HPI, Easy Bleeding, Easy Bruising, Lymphadenopathy, Other Past Patient History - Infectious Disease Hx of Infectious Diseases: None - Past Medical History & Family History Past Medical History?: Yes - Past Social History Smoking Status: Never Smoked - CARDIAC Hx Cardiac Disorders: Yes Hx Hypertension: Yes - PULMONARY Hx Respiratory Disorders: No - NEUROLOGICAL Hx Neurological Disorder: No - HEENT Hx HEENT Problems: No - ENDOCRINE/METABOLIC Hx Endocrine Disorders: Yes (DM) Hx Diabetes Mellitus Type 2: Yes - MUSCULOSKELETAL/RHEUMATOLOGICAL Hx Musculoskeletal Disorders: Yes Hx Falls: No - PSYCHIATRIC Hx Substance Use: No - SURGICAL HISTORY Other/Comment: Bilateral TMA - ANESTHESIA Hx Anesthesia: Yes Hx Anesthesia Reactions: No Meds Allergies/Adverse Reactions: Allergies Allergy/AdvReac Type Severity Reaction Status Date / Time No Known Allergies Allergy Verified 04/23/16 11:34 - Medications Medications: Current Medications Amlodipine Besylate (Norvasc) 10 mg PO QPM [facility] Last Admin: 01/15/17 17:18 Dose: 10 mg Aspirin (Ecotrin) 81 mg PO QPM [facility] Last Admin: 01/15/17 17:17 Dose: 81 mg Atorvastatin Calcium (Lipitor) 20 mg PO DAILY [facility] Last Admin: 01/15/17 08:49 Dose: 20 mg Clopidogrel Bisulfate (Plavix) 75 mg PO QPM [facility] Last Admin: 01/15/17 17:18 Dose: 75 mg Dextrose (Glutose 15) 0 gm PO ONCE PRN; Protocol PRN Reason: Hypoglycemia Protocol Dextrose (Dextrose 50% Inj) 0 ml IV STAT PRN; Protocol PRN Reason: Hyglycemia Protocol Enoxaparin Sodium (Lovenox) 40 mg SC DAILY [facility] PRN Reason: Protocol Last Admin: 01/15/17 08:49 Dose: 40 mg Gabapentin (Neurontin) 100 mg PO TID [facility] Last Admin: 01/15/17 17:21 Dose: 100 mg Glipizide (Glucotrol Xl) 10 mg PO BID [facility] Last Admin: 01/15/17 17:17 Dose: 10 mg Glucagon (Glucagen Diagnostic Kit) 0 mg IM STAT PRN; Protocol PRN Reason: Hypoglycemia Protocol Guaifenesin/Dextromethorphan (Robitussin Dm) 10 ml PO Q6 PRN PRN Reason: Cough Home Med (Lisinopril/Hydrochlorothiazide [Zestoretic 20-25 Mg Tablet]) 1 tab PO BID [facility] Last Admin: 01/14/17 19:39 Dose: Not Given Home Med (Multivitamin [Multi-Vitamin Daily]) 1 tab PO DAILY [facility] Hydrochlorothiazide (Hydrodiuril) 25 mg PO DAILY [facility] Last Admin: 01/15/17 08:49 Dose: 25 mg Piperacillin Sod/Tazobactam (Sod 3.375 gm/ Sodium Chloride) 100 mls @ 100 mls/ hr IVPB Q6 [facility] Last Admin: 01/15/17 17:13 Dose: 100 mls/hr Insulin Detemir (Levemir) 12 units SC HS [facility] Insulin Human Lispro (Humalog) 4 units SC ACTID [facility] Last Admin: 01/15/17 17:14 Dose: 4 units Insulin Human Lispro (Humalog) 0 units SC ACHS [facility] PRN Reason: Protocol Last Admin: 01/15/17 17:15 Dose: 6 units Lisinopril (Zestril) 20 mg PO DAILY [facility] Last Admin: 01/15/17 08:50 Dose: 20 mg Multivitamins/Minerals (Therapeutic-M Tab) 1 tab PO DAILY [facility] Last Admin: 01/15/17 08:50 Dose: 1 tab Gkjqs-1-Nidp Ethyl Esters (Lovaza) 1 gm PO BID [facility] Last Admin: 01/15/17 17:18 Dose: 1 gm Physical Exam - Constitutional Appears: Non-toxic, Chronically Ill - Head Exam Head Exam: ATRAUMATIC, NORMAL INSPECTION, NORMOCEPHALIC - Eye Exam Eye Exam: EOMI, Normal appearance, PERRL. absent: Scleral icterus - ENT Exam ENT Exam: Mucous Membranes Dry, Normal External Ear Exam, Normal Oropharynx - Neck Exam Neck exam: Positive for: Full Rom. Negative for: Lymphadenopathy, Thyromegaly - Respiratory Exam Respiratory Exam: Decreased Breath Sounds, Clear to Auscultation Bilateral - Cardiovascular Exam Cardiovascular Exam: REGULAR RHYTHM, +S1, +S2 - GI/Abdominal Exam GI & Abdominal Exam: Diminished Bowel Sounds, Soft. absent: Organomegaly, Rebound, Rigid, Tenderness - Rectal Exam Rectal Exam: Deferred. absent: Black Stool - Exam Exam: NORMAL INSPECTION - Extremities Exam Extremities exam: Positive for: pedal edema, pedal pulses present. Negative for : calf tenderness, tenderness Additional comments: TMA right side with min drainage + warmth redness to right ankle with edema - Back Exam Back exam: absent: CVA tenderness (L) - Neurological Exam Neurological exam: Alert, CN II-XII Intact, Oriented x3, Reflexes Normal - Psychiatric Exam Psychiatric exam: Normal Mood - Skin Skin Exam: Dry, Intact Results - Vital Signs Recent Vital Signs: Last Vital Signs Temp 99.2 F 01/15/17 16:23 Pulse 76 01/15/17 16:23 Resp 18 01/15/17 16:23 BP 167/69 H 01/15/17 16:23 Pulse Ox 94 L 01/15/17 16:23 - Labs Result Diagrams: 01/19/17 06:45 01/19/17 06:45 Labs: Laboratory Results - last 24 hr 01/14/17 01/15/17 01/15/17 21:41 00:04 06:30 WBC 11.2 H RBC 3.81 L Hgb 10.7 L Hct 31.6 L MCV 83.1 MCH 28.2 MCHC 34.0 RDW 14.4 Plt Count 336 MPV 6.6 L Neut % (Auto) 80.1 H Lymph % (Auto) 7.8 L Bracken % (Auto) 11.7 H Eos % (Auto) 0.0 Baso % (Auto) 0.4 Neut # 9.0 H Lymph # 0.9 L Bracken # 1.3 H Eos # 0.0 Baso # 0.0 Sodium 131 L Potassium 3.9 Chloride 90 L Carbon Dioxide 27 Anion Gap 18 BUN 17 Creatinine 0.8 Est GFR ( Amer) > 60 Est GFR (Non-Af Amer) > 60 POC Glucose (mg/dL) 352 H 305 H Random Glucose 279 H Calcium 8.6 Total Bilirubin 0.6 AST 30 ALT 22 Alkaline Phosphatase 66 Total Protein 6.5 Albumin 3.3 L Globulin 3.2 Albumin/Globulin Ratio 1.0 01/15/17 01/15/17 01/15/17 11:07 14:03 15:48 WBC RBC Hgb Hct MCV MCH MCHC RDW Plt Count MPV Neut % (Auto) Lymph % (Auto) Bracken % (Auto) Eos % (Auto) Baso % (Auto) Neut # Lymph # Bracken # Eos # Baso # Sodium Potassium Chloride Carbon Dioxide Anion Gap BUN Creatinine Est GFR ( Amer) Est GFR (Non-Af Amer) POC Glucose (mg/dL) 396 H 364 H 320 H Random Glucose Calcium Total Bilirubin AST ALT Alkaline Phosphatase Total Protein Albumin Globulin Albumin/Globulin Ratio Assessment & Plan (1) Cellulitis Status: Acute (2) Diabetic foot ulcers Status: Acute (3) Controlled type 2 diabetes mellitus with hyperglycemia Status: Chronic (4) Essential (primary) hypertension Status: Chronic (5) Mixed hyperlipidemia Status: Chronic - Assessment and Plan (Free Text) Assessment: r/o OM TMA stump check cultures cont iv rx
[2017-01-15] MEDS ORDERED: Insulin Detemir 100 Units/ml Inj SC SCH (22:00)
[2017-01-16] MEDS: Piperacillin/Tazobact 3.375 GM in Sodium Chloride 0.9% 100 ML IVPB SCH ×4 (04:48→22:04)
--- NOTE | 2017-01-16 06:11 | CP.PCM.PN ---
Subjective - Date & Time of Evaluation Date of Evaluation: 01/16/17 Time of Evaluation: 06:11 - Subjective Subjective: 71 year old male was seen resting comfortably at bedside regarding redness to the right lower extremity with right foot plantar ulcer with attending, Dr. Malone. Dressing is intact to right foot with some drainage noted to bandage. He states he is feeling good today. Denies any pain to his lower extremities. Patient is in no acute distress, AAOx3. He denies any n/v/f/c/sob/cp. Objective - Vital Signs/Intake and Output Vital Signs (last 24 hours): Temp Pulse Resp BP Pulse Ox 99.1 F 57 L 18 158/70 H 99 01/15/17 19:58 01/15/17 19:58 01/15/17 19:58 01/15/17 19:58 01/15/17 19:58 - Medications Medications: Current Medications Amlodipine Besylate (Norvasc) 10 mg PO QPM [facility] Last Admin: 01/15/17 17:18 Dose: 10 mg Aspirin (Ecotrin) 81 mg PO QPM [facility] Last Admin: 01/15/17 17:17 Dose: 81 mg Atorvastatin Calcium (Lipitor) 20 mg PO DAILY [facility] Last Admin: 01/15/17 08:49 Dose: 20 mg Clopidogrel Bisulfate (Plavix) 75 mg PO QPM [facility] Last Admin: 01/15/17 17:18 Dose: 75 mg Dextrose (Glutose 15) 0 gm PO ONCE PRN; Protocol PRN Reason: Hypoglycemia Protocol Dextrose (Dextrose 50% Inj) 0 ml IV STAT PRN; Protocol PRN Reason: Hyglycemia Protocol Enoxaparin Sodium (Lovenox) 40 mg SC DAILY [facility] PRN Reason: Protocol Last Admin: 01/15/17 08:49 Dose: 40 mg Gabapentin (Neurontin) 100 mg PO TID [facility] Last Admin: 01/15/17 17:21 Dose: 100 mg Glipizide (Glucotrol Xl) 10 mg PO BID [facility] Last Admin: 01/15/17 17:17 Dose: 10 mg Glucagon (Glucagen Diagnostic Kit) 0 mg IM STAT PRN; Protocol PRN Reason: Hypoglycemia Protocol Guaifenesin/Dextromethorphan (Robitussin Dm) 10 ml PO Q6 PRN PRN Reason: Cough Home Med (Lisinopril/Hydrochlorothiazide [Zestoretic 20-25 Mg Tablet]) 1 tab PO BID [facility] Last Admin: 01/14/17 19:39 Dose: Not Given Home Med (Multivitamin [Multi-Vitamin Daily]) 1 tab PO DAILY [facility] Hydrochlorothiazide (Hydrodiuril) 25 mg PO DAILY [facility] Last Admin: 01/15/17 08:49 Dose: 25 mg Piperacillin Sod/Tazobactam (Sod 3.375 gm/ Sodium Chloride) 100 mls @ 100 mls/ hr IVPB Q6 [facility] Last Admin: 01/16/17 04:48 Dose: 100 mls/hr Insulin Detemir (Levemir) 12 units SC HS [facility] Last Admin: 01/15/17 22:04 Dose: 12 units Insulin Human Lispro (Humalog) 4 units SC ACTID [facility] Last Admin: 01/15/17 17:14 Dose: 4 units Insulin Human Lispro (Humalog) 0 units SC ACHS [facility] PRN Reason: Protocol Last Admin: 01/15/17 22:12 Dose: Not Given Lisinopril (Zestril) 20 mg PO DAILY [facility] Last Admin: 01/15/17 08:50 Dose: 20 mg Multivitamins/Minerals (Therapeutic-M Tab) 1 tab PO DAILY [facility] Last Admin: 01/15/17 08:50 Dose: 1 tab Nynmf-7-Stth Ethyl Esters (Lovaza) 1 gm PO BID [facility] Last Admin: 01/15/17 17:18 Dose: 1 gm - Labs Labs: 01/15/17 06:30 01/15/17 06:30 PT 11.8 SECONDS (9.6-11.2) H 01/14/17 13:25 INR 1.13 (0.92-1.08) H 01/14/17 13:25 APTT 30.4 SECONDS (23.3-32.5) 01/14/17 13:25 - Constitutional Appears: Well, Non-toxic, No Acute Distress - Extremities Exam Additional comments: Right lower extremity focused exam: VASC: DP pulse palpable 2/4, PT pulse 2/4, Temperature gradient runs warm to warm distal to proximal. NEURO: Gross sensation diminished. ORTHO: Previous TMA amputation sites noted b/l. No pain on palpation to right leg or foot. DERM: Ulceration measure approximately 0.4 cm x 0.4 cm x 0.3 cm noted on the plantar aspect of the right foot around the 4th and 5th metatarsal bases,base is granular, periwound is hyperkeratotic. No probe to bone, scant amount of sero -sanguineous drainage noted. No tenderness, no malodor, no probe to bone noted. Right foot and Right lee are erythematous with non-pitting edema with increased warmth noted, improving. No drainage, no purulences, no fluctuance. - Neurological Exam Neurological Exam: Alert, Awake, Oriented x3 - Psychiatric Exam Psychiatric exam: Normal Affect, Normal Mood Assessment and Plan - Assessment and Plan (Free Text) Assessment: 71 year old male with right foot plantar ulcer secondary to diabetes and right lower extremity cellulits Plan: Patient examined and evaluated at bedside with attending, Dr. Malone Chart, labs, vitals reviewed: afebrile, WBC 13.1 (01/16/17) ID consulted- Continue Zosyn 3.375 gm Q 6 IVPB, Vanco 1g Q 12 H per ID Right foot radiographs- soft tissue swelling without acute articular or osseous abnormality Wound culture-gram negative rods, staph aureus Bone scan pending Right foot dressed with DSD Podiatry will continue to follow patient while in house
[2017-01-16 07:46] LABS: HEMATOCRIT 30.7 % (35.0-51.0); MEAN CORPUSCULAR HEMOGLOBIN 28.6 pg (27.0-31.0); MEAN CORPUSCULAR HGB CONC 34.8 g/dL (33.0-37.0); RED CELL DISTRIBUTION WIDTH 14.1 % (11.5-14.5); WHITE BLOOD COUNT 13.1 K/uL (4.8-10.8)
[2017-01-16 07:54] LABS: BLOOD UREA NITROGEN 16 mg/dl (9-20); CALCIUM 8.6 mg/dL (8.4-10.2); CARBON DIOXIDE 30 mmol/L (22-30); CHLORIDE 91 mmol/L (98-107); GFR AFRICAN-AMERICAN > 60; GLUCOSE,RANDOM 275 mg/dL (75-110); POTASSIUM 3.6 MMOL/L (3.6-5.0); SODIUM 134 mmol/l (132-148)
[2017-01-16] MEDS: Omega-3-Acid Ethyl Esters 1 GM Cap PO SCH ×2 (08:20→16:16)
[2017-01-16] MEDS: GlipiZIDE 10 mg SR Tab PO SCH ×2 (08:21→16:16)
[2017-01-16] MEDS: Insulin Lispro (humaLOG) 100 Units/ml Inj SC SCH ×7 (08:21→21:24)
[2017-01-16] MEDS: Multivitamin With Minerals Tab PO SCH (08:22)
[2017-01-16] MEDS: Enoxaparin 40 mg Syringe SC SCH (09:10)
--- NOTE | 2017-01-16 09:38 | CP.PCM.PN ---
<LizetteLashell - Last Filed: 01/16/17 16:07> Subjective - Date & Time of Evaluation Date of Evaluation: 01/16/17 Time of Evaluation: 07:30 - Subjective Subjective: 71M seen and examined at bedside with attending. Pt reports feeling okay and denies SOB, chest pain. He is eating well and ambulates with cane, Objective - Vital Signs/Intake and Output Vital Signs (last 24 hours): Temp Pulse Resp BP Pulse Ox 37.9 C H 62 20 155/66 H 96 01/16/17 07:34 01/16/17 08:22 01/16/17 07:34 01/16/17 08:22 01/16/17 07:34 - Medications Medications: Current Medications Amlodipine Besylate (Norvasc) 10 mg PO QPM [facility] Last Admin: 01/15/17 17:18 Dose: 10 mg Aspirin (Ecotrin) 81 mg PO QPM [facility] Last Admin: 01/15/17 17:17 Dose: 81 mg Atorvastatin Calcium (Lipitor) 20 mg PO DAILY [facility] Last Admin: 01/16/17 09:09 Dose: 20 mg Clopidogrel Bisulfate (Plavix) 75 mg PO QPM [facility] Last Admin: 01/15/17 17:18 Dose: 75 mg Dextrose (Glutose 15) 0 gm PO ONCE PRN; Protocol PRN Reason: Hypoglycemia Protocol Dextrose (Dextrose 50% Inj) 0 ml IV STAT PRN; Protocol PRN Reason: Hyglycemia Protocol Enoxaparin Sodium (Lovenox) 40 mg SC DAILY [facility] PRN Reason: Protocol Last Admin: 01/16/17 09:10 Dose: 40 mg Gabapentin (Neurontin) 100 mg PO TID [facility] Last Admin: 01/16/17 08:22 Dose: 100 mg Glipizide (Glucotrol Xl) 10 mg PO BID [facility] Last Admin: 01/16/17 08:21 Dose: 10 mg Glucagon (Glucagen Diagnostic Kit) 0 mg IM STAT PRN; Protocol PRN Reason: Hypoglycemia Protocol Guaifenesin/Dextromethorphan (Robitussin Dm) 10 ml PO Q6 PRN PRN Reason: Cough Home Med (Lisinopril/Hydrochlorothiazide [Zestoretic 20-25 Mg Tablet]) 1 tab PO BID [facility] Last Admin: 01/14/17 19:39 Dose: Not Given Home Med (Multivitamin [Multi-Vitamin Daily]) 1 tab PO DAILY [facility] Hydrochlorothiazide (Hydrodiuril) 25 mg PO DAILY [facility] Last Admin: 01/16/17 09:09 Dose: 25 mg Piperacillin Sod/Tazobactam (Sod 3.375 gm/ Sodium Chloride) 100 mls @ 100 mls/ hr IVPB Q6 [facility] Last Admin: 01/16/17 09:10 Dose: 100 mls/hr Insulin Detemir (Levemir) 12 units SC HS [facility] Last Admin: 01/15/17 22:04 Dose: 12 units Insulin Human Lispro (Humalog) 4 units SC ACTID [facility] Last Admin: 01/16/17 08:21 Dose: 4 units Insulin Human Lispro (Humalog) 0 units SC ACHS [facility] PRN Reason: Protocol Last Admin: 01/16/17 08:22 Dose: 4 units Lisinopril (Zestril) 20 mg PO DAILY [facility] Last Admin: 01/16/17 08:22 Dose: 20 mg Multivitamins/Minerals (Therapeutic-M Tab) 1 tab PO DAILY [facility] Last Admin: 01/16/17 08:22 Dose: 1 tab Bnbgu-2-Uebh Ethyl Esters (Lovaza) 1 gm PO BID [facility] Last Admin: 01/16/17 08:20 Dose: 1 gm - Labs Labs: 01/16/17 06:15 01/16/17 06:15 PT 11.8 SECONDS (9.6-11.2) H 01/14/17 13:25 INR 1.13 (0.92-1.08) H 01/14/17 13:25 APTT 30.4 SECONDS (23.3-32.5) 01/14/17 13:25 - Constitutional Appears: Well, Non-toxic - Head Exam Head Exam: ATRAUMATIC, NORMAL INSPECTION - Eye Exam Eye Exam: EOMI, Normal appearance - ENT Exam ENT Exam: Mucous Membranes Moist, Normal Exam - Neck Exam Neck Exam: Full ROM, Normal Inspection - Respiratory Exam Respiratory Exam: Clear to Ausculation Bilateral, NORMAL BREATHING PATTERN. absent: Rales, Wheezes - Cardiovascular Exam Cardiovascular Exam: REGULAR RHYTHM. absent: JVD - GI/Abdominal Exam GI & Abdominal Exam: Soft, Normal Bowel Sounds. absent: Tenderness - Extremities Exam Additional comments: Right Lower Leg Exam: improved erythema. absent: crepitus, tenderness Ankle exam: trace erythema. absent: tenderness Foot/Toe exam: amputation (TMA), erythema, tenderness at base of 5th metatarsal (ulceration when probed is ~0.5cm), draining serosanginous. absent: crepitus - Neurological Exam Neurological Exam: Alert, Awake, Oriented x3 - Psychiatric Exam Psychiatric exam: Normal Affect, Normal Mood - Skin Skin Exam: Normal Color, Warm Assessment and Plan (2) Controlled type 2 diabetes mellitus with hyperglycemia Assessment & Plan: Remains poorly controlled at this time (spiked to >400) likely 2/2 infection, will increase Levemir and SSI as well. - c/w home medications EXCEPT Metformin - Hypoglycemia bundle - Accu-checks - SSI, MOD w/ 6U ACTID - changed TDD: 40 (0.5kg/day) - Levemir 20U, SC, qHS Status: Chronic (3) DVT prophylaxis Assessment & Plan: Lovenox 40mg, SC, Daily Status: Acute (4) Essential (primary) hypertension Assessment & Plan: Controlled, c/w home medications Status: Chronic (5) Cellulitis Assessment & Plan: Slight improvement of erythema w/o edema at foot, but residual erythema at distal RLE, w/o fluctuance. Increasing leukocytosis w/o febrile episodes, BCx: gram pos clusters, Wound Cx: gram neg rods/s. aureus, ESR- 102 - Improve glucose control - Mgmnt as per Podiatry: Bone scan, Add Vanc to Zosyn, f/u ID consult, wound cx sensitivity. - c/w Zosyn 3.375mg, IV, Q6H - Add Vancomycin, trough 4/9 @ 0830 (goal 15-20) - f/u ID Consult (Dr Alejandra): f/u Cx sensitivities, Bone scan, Add Vancomycin - c/w Gabapentin for discomfort Status: Acute <Benitez,Deshawn K - Last Filed: 01/30/17 15:49> Objective - Vital Signs/Intake and Output Vital Signs (last 24 hours): Temp Pulse Resp BP Pulse Ox 97.9 F 64 20 128/73 99 01/23/17 08:24 01/23/17 08:24 01/23/17 08:24 01/23/17 08:24 01/23/17 08:24 - Labs Labs: 01/22/17 05:50 01/22/17 05:50 PT 11.8 SECONDS (9.6-11.2) H 01/14/17 13:25 INR 1.13 (0.92-1.08) H 01/14/17 13:25 APTT 30.4 SECONDS (23.3-32.5) 01/14/17 13:25 Assessment and Plan - Assessment and Plan (Free Text) Assessment: Patient was personally seen and examined by me in rounds with residents. Available labs and diagnostic data reviewed. Case, Patient's condition and management plan discussed with residents in rounds. Agree with resident's documentation. Plan: As ordered. Deshawn Benitez MD
--- NOTE | 2017-01-16 13:38 | CP.PCM.PN ---
Subjective - Date & Time of Evaluation Date of Evaluation: 01/16/17 Time of Evaluation: 09:00 - Subjective Subjective: foot warm/dry leg red hot + blood c/s cont iv rx check MRI Objective - Vital Signs/Intake and Output Vital Signs (last 24 hours): Temp Pulse Resp BP Pulse Ox 98.5 F 62 20 155/66 H 96 01/16/17 09:45 01/16/17 08:22 01/16/17 07:34 01/16/17 08:22 01/16/17 07:34 - Medications Medications: Current Medications Amlodipine Besylate (Norvasc) 10 mg PO QPM [facility] Last Admin: 01/15/17 17:18 Dose: 10 mg Aspirin (Ecotrin) 81 mg PO QPM [facility] Last Admin: 01/15/17 17:17 Dose: 81 mg Atorvastatin Calcium (Lipitor) 20 mg PO DAILY [facility] Last Admin: 01/16/17 09:09 Dose: 20 mg Clopidogrel Bisulfate (Plavix) 75 mg PO QPM [facility] Last Admin: 01/15/17 17:18 Dose: 75 mg Dextrose (Glutose 15) 0 gm PO ONCE PRN; Protocol PRN Reason: Hypoglycemia Protocol Dextrose (Dextrose 50% Inj) 0 ml IV STAT PRN; Protocol PRN Reason: Hyglycemia Protocol Enoxaparin Sodium (Lovenox) 40 mg SC DAILY [facility] PRN Reason: Protocol Last Admin: 01/16/17 09:10 Dose: 40 mg Gabapentin (Neurontin) 100 mg PO TID [facility] Last Admin: 01/16/17 12:01 Dose: 100 mg Glipizide (Glucotrol Xl) 10 mg PO BID [facility] Last Admin: 01/16/17 08:21 Dose: 10 mg Glucagon (Glucagen Diagnostic Kit) 0 mg IM STAT PRN; Protocol PRN Reason: Hypoglycemia Protocol Guaifenesin/Dextromethorphan (Robitussin Dm) 10 ml PO Q6 PRN PRN Reason: Cough Home Med (Lisinopril/Hydrochlorothiazide [Zestoretic 20-25 Mg Tablet]) 1 tab PO BID [facility] Last Admin: 01/14/17 19:39 Dose: Not Given Home Med (Multivitamin [Multi-Vitamin Daily]) 1 tab PO DAILY [facility] Hydrochlorothiazide (Hydrodiuril) 25 mg PO DAILY [facility] Last Admin: 01/16/17 09:09 Dose: 25 mg Piperacillin Sod/Tazobactam (Sod 3.375 gm/ Sodium Chloride) 100 mls @ 100 mls/ hr IVPB Q6 [facility] Last Admin: 01/16/17 09:10 Dose: 100 mls/hr Insulin Detemir (Levemir) 12 units SC HS [facility] Last Admin: 01/15/17 22:04 Dose: 12 units Insulin Human Lispro (Humalog) 4 units SC ACTID [facility] Last Admin: 01/16/17 11:07 Dose: 4 units Insulin Human Lispro (Humalog) 0 units SC ACHS [facility] PRN Reason: Protocol Last Admin: 01/16/17 11:08 Dose: 10 units Lisinopril (Zestril) 20 mg PO DAILY [facility] Last Admin: 01/16/17 08:22 Dose: 20 mg Multivitamins/Minerals (Therapeutic-M Tab) 1 tab PO DAILY [facility] Last Admin: 01/16/17 08:22 Dose: 1 tab Fxwll-4-Pgnh Ethyl Esters (Lovaza) 1 gm PO BID [facility] Last Admin: 01/16/17 08:20 Dose: 1 gm - Labs Labs: 01/16/17 06:15 01/16/17 06:15 PT 11.8 SECONDS (9.6-11.2) H 01/14/17 13:25 INR 1.13 (0.92-1.08) H 01/14/17 13:25 APTT 30.4 SECONDS (23.3-32.5) 01/14/17 13:25 - Constitutional Appears: Non-toxic, Chronically Ill - Head Exam Head Exam: NORMOCEPHALIC - Eye Exam Eye Exam: PERRL. absent: Scleral icterus - ENT Exam ENT Exam: Mucous Membranes Dry - Neck Exam Neck Exam: absent: Lymphadenopathy - Respiratory Exam Respiratory Exam: Decreased Breath Sounds, Clear to Ausculation Bilateral - Cardiovascular Exam Cardiovascular Exam: REGULAR RHYTHM - GI/Abdominal Exam GI & Abdominal Exam: Distended, Soft - Rectal Exam Rectal Exam: Deferred - Exam Exam: NORMAL INSPECTION - Extremities Exam Additional comments: bilat TMA Assessment and Plan (1) Cellulitis Status: Acute (2) Diabetic foot ulcers Status: Acute (3) Controlled type 2 diabetes mellitus with hyperglycemia Status: Chronic - Assessment and Plan (Free Text) Assessment: r/o om
[2017-01-16 19:12] LABS: RBC URINE 1 /hpf (0-3); URINE BILIRUBIN NEGATIVE (NEGATIVE); URINE BLOOD NEGATIVE (NEGATIVE); URINE COLOR YELLOW (YELLOW); URINE GLUCOSE (UA) >=500 mg/dL (Normal); URINE KETONE NEGATIVE (NEGATIVE); URINE LEUKOCYTE ESTERASE NEG Leu/uL (Negative); URINE PROTEIN 100 mg/dL (NEGATIVE); WBC URINE 1 /hpf (0-5)
[2017-01-16] MEDS: Insulin Detemir 100 Units/ml Inj SC SCH (21:25)
[2017-01-17] MEDS: Piperacillin/Tazobact 3.375 GM in Sodium Chloride 0.9% 100 ML IVPB SCH ×4 (04:45→22:22)
[2017-01-17 07:13] LABS: BASO # 0.1 K/uL (0.0-0.2); BASO % 0.7 % (0.0-2.0); EOS # 0.1 K/uL (0.0-0.7); EOS % 1.1 % (0.0-4.0); HEMATOCRIT 29.1 % (35.0-51.0); LYMPH # 0.7 K/uL (1.0-4.3); LYMPH % 6.4 % (20.0-40.0); MEAN CELL VOLUME 83.1 fl (80.0-94.0); MEAN CORPUSCULAR HGB CONC 33.7 g/dL (33.0-37.0); MEAN PLATELET VOLUME 6.4 fl (7.2-11.7); MONO # 0.9 K/uL (0.0-0.8); MONO % 7.8 % (0.0-10.0); NEUT # 9.8 K/uL (1.8-7.0); NRBC % 0.1 % (0.0-0.0); RED CELL DISTRIBUTION WIDTH 14.5 % (11.5-14.5); WHITE BLOOD COUNT 11.7 K/uL (4.8-10.8)
[2017-01-17 07:27] LABS: BLOOD UREA NITROGEN 17 mg/dl (9-20); CALCIUM 8.6 mg/dL (8.4-10.2); CARBON DIOXIDE 31 mmol/L (22-30); CHLORIDE 93 mmol/L (98-107); GFR AFRICAN-AMERICAN > 60; GLUCOSE,RANDOM 291 mg/dL (75-110); POTASSIUM 3.5 MMOL/L (3.6-5.0); SODIUM 136 mmol/l (132-148)
[2017-01-17] MEDS: Insulin Lispro (humaLOG) 100 Units/ml Inj SC SCH ×7 (08:43→21:39)
[2017-01-17] MEDS: Omega-3-Acid Ethyl Esters 1 GM Cap PO SCH ×2 (08:45→17:57)
[2017-01-17] MEDS: Enoxaparin 40 mg Syringe SC SCH (08:45)
[2017-01-17] MEDS: Multivitamin With Minerals Tab PO SCH (08:46)
--- NOTE | 2017-01-17 08:58 | PN ---
DATE: 01/17/2017 The patient seen and examined. Interim events noted. The patient remains on regular medical floor. Infectious disease consult noted and appreciated. The patient complaining of shoulder pain and was given Motrin which relieved the pain. No chest pain or shortness of breath. PHYSICAL EXAMINATION: GENERAL: The patient is in no acute distress. VITAL SIGNS: Stable. HEART: S1, S2 normal, regular. LUNGS: Good bilateral air entry. ABDOMEN: Soft, nontender. EXTREMITIES: The patient has left foot ulcer which is essentially unchanged. CENTRAL NERVOUS SYSTEM: Essentially unchanged. DIAGNOSTIC DATA: Available diagnostic data reviewed. The patient's blood culture is positive for St rep and also wound cultures positive for gram-negative and gram-positive organisms. Overall, patient's general medical condition is stable and improving. PLAN: As ordered. Deshawn Benitez MD cc: [id number] TT: 01/17/2017 08:58:09 Confirmation # [id number] Dictation # [id number] jn
[2017-01-17] MEDS: GlipiZIDE 10 mg SR Tab PO SCH ×2 (09:39→17:55)
--- NOTE | 2017-01-17 09:39 | CP.PCM.PN ---
Subjective - Date & Time of Evaluation Date of Evaluation: 01/17/17 Time of Evaluation: 09:00 - Subjective Subjective: 71 y/o male patient seen and evaluated at bedside for follow up on right foot plantar ulcer. Patient was resting comfortably in bed and in NAD. AAOx3. Patient denies any overnight event. Patient also denies any pedal pain at this time. Right foot dressing intact, clean and dry. Patient denies any symptoms of N/V/F/SOB/Chest pain. Objective - Vital Signs/Intake and Output Vital Signs (last 24 hours): Temp Pulse Resp BP Pulse Ox 97.6 F 62 20 154/64 H 96 01/17/17 08:16 01/17/17 08:46 01/17/17 08:16 01/17/17 08:46 01/17/17 08:16 - Medications Medications: Current Medications Amlodipine Besylate (Norvasc) 10 mg PO QPM [facility] Last Admin: 01/16/17 17:30 Dose: 10 mg Aspirin (Ecotrin) 81 mg PO QPM [facility] Last Admin: 01/16/17 17:29 Dose: 81 mg Atorvastatin Calcium (Lipitor) 20 mg PO DAILY [facility] Last Admin: 01/17/17 08:45 Dose: 20 mg Clopidogrel Bisulfate (Plavix) 75 mg PO QPM [facility] Last Admin: 01/16/17 17:30 Dose: 75 mg Dextrose (Glutose 15) 0 gm PO ONCE PRN; Protocol PRN Reason: Hypoglycemia Protocol Dextrose (Dextrose 50% Inj) 0 ml IV STAT PRN; Protocol PRN Reason: Hyglycemia Protocol Enoxaparin Sodium (Lovenox) 40 mg SC DAILY [facility] PRN Reason: Protocol Last Admin: 01/17/17 08:45 Dose: 40 mg Gabapentin (Neurontin) 100 mg PO TID [facility] Last Admin: 01/17/17 08:45 Dose: 100 mg Glipizide (Glucotrol Xl) 10 mg PO BID [facility] Last Admin: 01/16/17 16:16 Dose: 10 mg Glucagon (Glucagen Diagnostic Kit) 0 mg IM STAT PRN; Protocol PRN Reason: Hypoglycemia Protocol Guaifenesin/Dextromethorphan (Robitussin Dm) 10 ml PO Q6 PRN PRN Reason: Cough Home Med (Lisinopril/Hydrochlorothiazide [Zestoretic 20-25 Mg Tablet]) 1 tab PO BID [facility] Last Admin: 01/14/17 19:39 Dose: Not Given Home Med (Multivitamin [Multi-Vitamin Daily]) 1 tab PO DAILY [facility] Hydrochlorothiazide (Hydrodiuril) 25 mg PO DAILY [facility] Last Admin: 01/17/17 08:44 Dose: 25 mg Piperacillin Sod/Tazobactam (Sod 3.375 gm/ Sodium Chloride) 100 mls @ 100 mls/ hr IVPB Q6 [facility] Last Admin: 01/17/17 04:45 Dose: 100 mls/hr Vancomycin HCl 1 gm/ Sodium (Chloride) 250 mls @ 166.667 mls/hr IVPB Q12 [facility] Last Admin: 01/17/17 08:52 Dose: 166.667 mls/hr Ibuprofen (Motrin Tab) 600 mg PO Q6 PRN PRN Reason: Pain, Mild (1-3) Last Admin: 01/17/17 02:51 Dose: 600 mg Insulin Detemir (Levemir) 20 units SC HS [facility] Last Admin: 01/16/17 21:25 Dose: 20 u Insulin Human Lispro (Humalog) 0 units SC ACHS [facility] PRN Reason: Protocol Last Admin: 01/17/17 08:44 Dose: 6 units Insulin Human Lispro (Humalog) 6 units SC ACTID [facility] Last Admin: 01/17/17 08:43 Dose: 6 units Lisinopril (Zestril) 20 mg PO DAILY [facility] Last Admin: 01/17/17 08:46 Dose: 20 mg Multivitamins/Minerals (Therapeutic-M Tab) 1 tab PO DAILY [facility] Last Admin: 01/17/17 08:46 Dose: 1 tab Vnnzg-5-Dhbe Ethyl Esters (Lovaza) 1 gm PO BID [facility] Last Admin: 01/17/17 08:45 Dose: 1 gm - Labs Labs: 01/17/17 05:30 01/17/17 05:30 PT 11.8 SECONDS (9.6-11.2) H 01/14/17 13:25 INR 1.13 (0.92-1.08) H 01/14/17 13:25 APTT 30.4 SECONDS (23.3-32.5) 01/14/17 13:25 - Constitutional Appears: Well, Non-toxic, No Acute Distress - Extremities Exam Additional comments: Right lower extremity focused exam: VASC: DP pulse palpable 2/4, PT pulse 2/4, Temperature gradient runs warm to warm distal to proximal. NEURO: Gross sensation diminished. ORTHO: Previous TMA amputation sites noted b/l. No pain on palpation to right leg or foot. DERM: Ulceration measure approximately 0.4 cm x 0.4 cm x 0.3 cm noted on the plantar aspect of the right foot around the 4th and 5th metatarsal bases,base is granular, periwound is hyperkeratotic. No probe to bone, no drainage, no signs of infection, no erythema/edema noted, no tunneling, no sinus track noted , no fluctuance. - Psychiatric Exam Psychiatric exam: Normal Affect, Normal Mood Assessment and Plan - Assessment and Plan (Free Text) Assessment: 71 year old male with right foot plantar ulcer secondary to diabetes and right lower extremity cellulits Plan: Patient examined and evaluated at bedside Chart, labs, vitals reviewed: afebrile, WBC 11.7 (01/17/17) Discussed with attending Dr. Malone Continue Zosyn 3.375 gm Q 6 IVPB, Vanco 1g Q 12 H per ID Right foot radiographs- soft tissue swelling without acute articular or osseous abnormality Wound cultureCitrobacter Diversus and staph aureus Bone scan pending Right foot dressed with DSD Podiatry will continue to follow patient while in house
[2017-01-17] MEDS: Artificial Tears Opht Soln OU PRN (10:33)
[2017-01-17] MEDS: Insulin Detemir 100 Units/ml Inj SC SCH (21:37)
[2017-01-18] MEDS: Piperacillin/Tazobact 3.375 GM in Sodium Chloride 0.9% 100 ML IVPB SCH ×2 (04:44→10:09)
[2017-01-18] MEDS ORDERED: Insulin Detemir 100 Units/ml Inj SC SCH ×2 (06:30→22:00)
[2017-01-18 07:25] LABS: MEAN CELL VOLUME 82.8 fl (80.0-94.0); MEAN CORPUSCULAR HEMOGLOBIN 28.8 pg (27.0-31.0); MEAN CORPUSCULAR HGB CONC 34.8 g/dL (33.0-37.0); RED CELL DISTRIBUTION WIDTH 14.5 % (11.5-14.5); WHITE BLOOD COUNT 10.9 K/uL (4.8-10.8)
[2017-01-18 07:41] LABS: ALB/GLOB RATIO 0.9 (1.0-2.1); ALKALINE PHOSPHATASE 85 U/L (38-126); ALT/SGPT 50 U/L (21-72); AST/SGOT 49 U/L (17-59); BILIRUBIN,TOTAL 0.4 mg/dl (0.2-1.3); BLOOD UREA NITROGEN 14 mg/dl (9-20); CALCIUM 8.9 mg/dL (8.4-10.2); CARBON DIOXIDE 34 mmol/L (22-30); CHLORIDE 94 mmol/L (98-107); GFR AFRICAN-AMERICAN > 60; GLUCOSE,RANDOM 218 mg/dL (75-110); POTASSIUM 3.4 MMOL/L (3.6-5.0); SODIUM 138 mmol/l (132-148); TOTAL PROTEIN 6.3 G/DL (6.3-8.2)
[2017-01-18 08:34] LABS: BASO # 0.1 K/uL (0.0-0.2); BASO % 0.7 % (0.0-2.0); EOS # 0.4 K/uL (0.0-0.7); EOS % 3.6 % (0.0-4.0); HEMATOCRIT 31.5 % (35.0-51.0); LYMPH % 9.4 % (20.0-40.0); MEAN CELL VOLUME 83.9 fl (80.0-94.0); MEAN CORPUSCULAR HEMOGLOBIN 28.2 pg (27.0-31.0); MEAN CORPUSCULAR HGB CONC 33.6 g/dL (33.0-37.0); MEAN PLATELET VOLUME 6.2 fl (7.2-11.7); MONO # 1.1 K/uL (0.0-0.8); MONO % 10.1 % (0.0-10.0); NEUT # 8.2 K/uL (1.8-7.0); NEUT % 76.2 % (50.0-75.0); NRBC % 0.6 % (0.0-0.0); PLATELET COUNT 386 K/uL (130-400); RED CELL DISTRIBUTION WIDTH 14.6 % (11.5-14.5); WHITE BLOOD COUNT 10.7 K/uL (4.8-10.8)
--- NOTE | 2017-01-18 08:37 | PN ---
DATE: 01/18/2017 SUBJECTIVE: The patient is seen and examined. Interim events noted. The patient remains on regular medical floor on IV antibiotic. The patient with gram-positive septicemia and infected leg wound. The patient feels okay, had episodes of bleeding from the wound, but spontaneously resolved. No ches t pain, no shortness of breath. PHYSICAL EXAMINATION: GENERAL: The patient is in no acute distress. VITAL SIGNS: Stable. HEART: S1, S2 normal, regular. LUNGS: Good bilateral air entry. ABDOMEN: Soft, nontender. EXTREMITIES: No clubbing, no cyanosis, no acute ischemia. ____ podiatric dressing. No sign of dist al complications. CENTRAL NERVOUS SYSTEM: Essentially unchanged. DIAGNOSTIC DATA: Available diagnostic data reviewed. Overall, the patient's general medical condition is stable. PLAN: As ordered. Deshawn Benitez MD cc: [phone] TT: 01/18/2017 08:36:28 Confirmation # [id number] Dictation # [id number] jn
[2017-01-18] MEDS: Insulin Lispro (humaLOG) 100 Units/ml Inj SC SCH ×7 (08:40→22:06)
[2017-01-18 08:47] LABS: BLOOD UREA NITROGEN 14 mg/dl (9-20); CARBON DIOXIDE 32 mmol/L (22-30); CHLORIDE 95 mmol/L (98-107); GFR AFRICAN-AMERICAN > 60; GLUCOSE,RANDOM 180 mg/dL (75-110); POTASSIUM 3.5 MMOL/L (3.6-5.0); SODIUM 140 mmol/l (132-148)
[2017-01-18] MEDS: Artificial Tears Opht Soln OU PRN (08:48)
[2017-01-18] MEDS: Multivitamin With Minerals Tab PO SCH (08:51)
[2017-01-18] MEDS: Omega-3-Acid Ethyl Esters 1 GM Cap PO SCH ×2 (08:52→16:01)
[2017-01-18] MEDS: GlipiZIDE 10 mg SR Tab PO SCH ×2 (08:52→16:00)
[2017-01-18 10:35] LABS: BASOPHIL 1 % (0-2); NEUTROPHIL 83 % (42-75); TOTAL CELLS COUNTED 100
[2017-01-18 10:37] LABS: LARGE PLATELETS PRESENT
--- NOTE | 2017-01-18 13:38 | CP.PCM.PN ---
Subjective - Date & Time of Evaluation Date of Evaluation: 01/18/17 Time of Evaluation: 07:00 - Subjective Subjective: wound c/s + MSSA and Citrobacter cellulitis improved await bone scan switched to ancef 2gh q8h Objective - Vital Signs/Intake and Output Vital Signs (last 24 hours): Temp Pulse Resp BP Pulse Ox 98.2 F 64 20 154/68 H 94 L 01/18/17 07:44 01/18/17 08:51 01/18/17 07:44 01/18/17 08:51 01/18/17 07:44 - Medications Medications: Current Medications Amlodipine Besylate (Norvasc) 10 mg PO QPM [facility] Last Admin: 01/17/17 17:59 Dose: 10 mg Artificial Tears (Artificial Tears) 2 drop OU Q6 PRN PRN Reason: Dry eyes Last Admin: 01/18/17 08:48 Dose: 2 drp Aspirin (Ecotrin) 81 mg PO QPM [facility] Last Admin: 01/17/17 17:55 Dose: 81 mg Atorvastatin Calcium (Lipitor) 20 mg PO DAILY [facility] Last Admin: 01/18/17 08:52 Dose: 20 mg Clopidogrel Bisulfate (Plavix) 75 mg PO QPM [facility] Last Admin: 01/17/17 17:59 Dose: 75 mg Dextrose (Glutose 15) 0 gm PO ONCE PRN; Protocol PRN Reason: Hypoglycemia Protocol Dextrose (Dextrose 50% Inj) 0 ml IV STAT PRN; Protocol PRN Reason: Hyglycemia Protocol Gabapentin (Neurontin) 100 mg PO TID [facility] Last Admin: 01/18/17 13:32 Dose: 100 mg Glipizide (Glucotrol Xl) 10 mg PO BID [facility] Last Admin: 01/18/17 08:52 Dose: 10 mg Glucagon (Glucagen Diagnostic Kit) 0 mg IM STAT PRN; Protocol PRN Reason: Hypoglycemia Protocol Guaifenesin/Dextromethorphan (Robitussin Dm) 10 ml PO Q6 PRN PRN Reason: Cough Last Admin: 01/18/17 08:53 Dose: 10 ml Home Med (Lisinopril/Hydrochlorothiazide [Zestoretic 20-25 Mg Tablet]) 1 tab PO BID [facility] Last Admin: 01/14/17 19:39 Dose: Not Given Home Med (Multivitamin [Multi-Vitamin Daily]) 1 tab PO DAILY [facility] Hydrochlorothiazide (Hydrodiuril) 25 mg PO DAILY [facility] Last Admin: 01/18/17 08:53 Dose: 25 mg Piperacillin Sod/Tazobactam (Sod 3.375 gm/ Sodium Chloride) 100 mls @ 100 mls/ hr IVPB Q6 [facility] Last Admin: 01/18/17 10:09 Dose: 100 mls/hr Ibuprofen (Motrin Tab) 600 mg PO Q6 PRN PRN Reason: Pain, Mild (1-3) Last Admin: 01/18/17 13:32 Dose: 600 mg Insulin Detemir (Levemir) 25 units SC HS [facility] Insulin Human Lispro (Humalog) 0 units SC ACHS [facility] PRN Reason: Protocol Last Admin: 01/18/17 12:33 Dose: 4 units Insulin Human Lispro (Humalog) 6 units SC ACTID [facility] Last Admin: 01/18/17 12:34 Dose: 6 units Lisinopril (Zestril) 20 mg PO DAILY [facility] Last Admin: 01/18/17 08:51 Dose: 20 mg Multivitamins/Minerals (Therapeutic-M Tab) 1 tab PO DAILY [facility] Last Admin: 01/18/17 08:51 Dose: 1 tab Mupirocin (Bactroban Ointment) 1 applic TOP BID [facility] Last Admin: 01/18/17 08:54 Dose: Not Given Bsyfr-8-Uhiw Ethyl Esters (Lovaza) 1 gm PO BID [facility] Last Admin: 01/18/17 08:52 Dose: 1 gm - Labs Labs: 01/18/17 08:15 01/18/17 08:15 PT 11.8 SECONDS (9.6-11.2) H 01/14/17 13:25 INR 1.13 (0.92-1.08) H 01/14/17 13:25 APTT 30.4 SECONDS (23.3-32.5) 01/14/17 13:25 - Constitutional Appears: Non-toxic, Chronically Ill - Head Exam Head Exam: NORMOCEPHALIC - Eye Exam Eye Exam: PERRL. absent: Scleral icterus - ENT Exam ENT Exam: Mucous Membranes Dry - Neck Exam Neck Exam: absent: Lymphadenopathy - Respiratory Exam Respiratory Exam: Decreased Breath Sounds, Clear to Ausculation Bilateral - Cardiovascular Exam Cardiovascular Exam: REGULAR RHYTHM, +S1, +S2 - GI/Abdominal Exam GI & Abdominal Exam: Distended, Soft. absent: Tenderness - Rectal Exam Rectal Exam: Deferred - Exam Exam: NORMAL INSPECTION - Extremities Exam Extremities Exam: Pedal Edema, Tenderness. absent: Calf Tenderness - Back Exam Back Exam: absent: CVA tenderness (L), CVA tenderness (R) Assessment and Plan (1) Cellulitis Status: Acute (2) Diabetic foot ulcers Status: Acute (3) Controlled type 2 diabetes mellitus with hyperglycemia Status: Chronic - Assessment and Plan (Free Text) Assessment: cont iv antibiotics d/c vanco
--- NOTE | 2017-01-18 15:12 | CP.PCM.PN ---
Subjective - Date & Time of Evaluation Date of Evaluation: 01/18/17 Time of Evaluation: 11:40 - Subjective Subjective: 71 y/o male patient seen and evaluated at bedside for follow up on right foot plantar ulcer. Patient was resting comfortably in bed and in NAD. AAOx3. Patient denies any overnight event. Patient also denies any pedal pain at this time. Right foot dressing intact, clean and dry. Patient denies any symptoms of N/V/F/SOB/Chest pain. Objective - Vital Signs/Intake and Output Vital Signs (last 24 hours): Temp Pulse Resp BP Pulse Ox 98.2 F 64 20 154/68 H 94 L 01/18/17 07:44 01/18/17 08:51 01/18/17 07:44 01/18/17 08:51 01/18/17 07:44 - Medications Medications: Current Medications Amlodipine Besylate (Norvasc) 10 mg PO QPM [facility] Last Admin: 01/17/17 17:59 Dose: 10 mg Artificial Tears (Artificial Tears) 2 drop OU Q6 PRN PRN Reason: Dry eyes Last Admin: 01/18/17 08:48 Dose: 2 drp Aspirin (Ecotrin) 81 mg PO QPM [facility] Last Admin: 01/17/17 17:55 Dose: 81 mg Atorvastatin Calcium (Lipitor) 20 mg PO DAILY [facility] Last Admin: 01/18/17 08:52 Dose: 20 mg Clopidogrel Bisulfate (Plavix) 75 mg PO QPM [facility] Last Admin: 01/17/17 17:59 Dose: 75 mg Dextrose (Glutose 15) 0 gm PO ONCE PRN; Protocol PRN Reason: Hypoglycemia Protocol Dextrose (Dextrose 50% Inj) 0 ml IV STAT PRN; Protocol PRN Reason: Hyglycemia Protocol Gabapentin (Neurontin) 100 mg PO TID [facility] Last Admin: 01/18/17 13:32 Dose: 100 mg Glipizide (Glucotrol Xl) 10 mg PO BID [facility] Last Admin: 01/18/17 08:52 Dose: 10 mg Glucagon (Glucagen Diagnostic Kit) 0 mg IM STAT PRN; Protocol PRN Reason: Hypoglycemia Protocol Guaifenesin/Dextromethorphan (Robitussin Dm) 10 ml PO Q6 PRN PRN Reason: Cough Last Admin: 01/18/17 08:53 Dose: 10 ml Home Med (Lisinopril/Hydrochlorothiazide [Zestoretic 20-25 Mg Tablet]) 1 tab PO BID [facility] Last Admin: 01/14/17 19:39 Dose: Not Given Home Med (Multivitamin [Multi-Vitamin Daily]) 1 tab PO DAILY [facility] Hydrochlorothiazide (Hydrodiuril) 25 mg PO DAILY [facility] Last Admin: 01/18/17 08:53 Dose: 25 mg Cefazolin Sodium 2 gm/ Sodium (Chloride) 100 mls @ 100 mls/hr IVPB Q8 [facility] Ibuprofen (Motrin Tab) 600 mg PO Q6 PRN PRN Reason: Pain, Mild (1-3) Last Admin: 01/18/17 13:32 Dose: 600 mg Insulin Detemir (Levemir) 25 units SC HS [facility] Insulin Human Lispro (Humalog) 0 units SC ACHS [facility] PRN Reason: Protocol Last Admin: 01/18/17 12:33 Dose: 4 units Insulin Human Lispro (Humalog) 6 units SC ACTID [facility] Last Admin: 01/18/17 12:34 Dose: 6 units Lisinopril (Zestril) 20 mg PO DAILY [facility] Last Admin: 01/18/17 08:51 Dose: 20 mg Multivitamins/Minerals (Therapeutic-M Tab) 1 tab PO DAILY [facility] Last Admin: 01/18/17 08:51 Dose: 1 tab Mupirocin (Bactroban Ointment) 1 applic TOP BID [facility] Last Admin: 01/18/17 08:54 Dose: Not Given Dvsex-5-Qtdk Ethyl Esters (Lovaza) 1 gm PO BID [facility] Last Admin: 01/18/17 08:52 Dose: 1 gm - Labs Labs: 01/18/17 08:15 01/18/17 08:15 PT 11.8 SECONDS (9.6-11.2) H 01/14/17 13:25 INR 1.13 (0.92-1.08) H 01/14/17 13:25 APTT 30.4 SECONDS (23.3-32.5) 01/14/17 13:25 - Constitutional Appears: Well, Non-toxic, No Acute Distress - Extremities Exam Additional comments: Right lower extremity focused exam: VASC: DP pulse palpable 2/4, PT pulse 2/4, Temperature gradient runs warm to warm distal to proximal. NEURO: Gross sensation diminished. ORTHO: Previous TMA amputation sites noted b/l. No pain on palpation to right leg or foot. DERM: Ulceration measure approximately 0.4 cm x 0.4 cm x 0.3 cm noted on the plantar aspect of the right foot around the 4th and 5th metatarsal bases,base is granular, periwound is hyperkeratotic. Wound was compressed and 0.2cc of purulence was noted, No probe to bone,, no signs of infection, no erythema/ edema noted, no tunneling, no sinus track noted, no fluctuance. - Neurological Exam Neurological Exam: Alert, Awake, CN II-XII Intact - Psychiatric Exam Psychiatric exam: Normal Affect, Normal Mood Assessment and Plan - Assessment and Plan (Free Text) Assessment: 71 year old male with right foot plantar ulcer secondary to diabetes and right lower extremity cellulits Plan: Patient examined and evaluated at bedside Chart, labs, vitals reviewed: afebrile, WBC 10.7 (01/17/17) Discussed with attending Dr. Malone IV abx was switvched to Ancef 2g q8 per ID Right foot radiographs- soft tissue swelling without acute articular or osseous abnormality Wound culture: Citrobacter Diversus and staph aureus Bone scan pending Right foot dressed with bactroban ointment and DSD Podiatry will continue to follow patient while in house
[2017-01-18] MEDS: ceFAZolin 2 GM in Sodium Chloride 0.9% 100 ML IVPB SCH (16:06)
[2017-01-19] MEDS: ceFAZolin 2 GM in Sodium Chloride 0.9% 100 ML IVPB SCH ×4 (00:49→23:59)
[2017-01-19] MEDS ORDERED: Insulin Detemir 100 Units/ml Inj SC SCH (06:31)
--- NOTE | 2017-01-19 07:17 | CP.PCM.PN ---
Subjective - Date & Time of Evaluation Date of Evaluation: 01/19/17 Time of Evaluation: 07:15 - Subjective Subjective: 71 year old male was seen resting comfortably at bedside regarding redness to the right lower extremity with right foot plantar ulcer. Dressing is clean, dry , intact to right foot. He states he is feeling good today. Denies any pain to his lower extremities. Patient is in no acute distress, AAOx3. He denies any n/v /f/c/sob/cp. Objective - Vital Signs/Intake and Output Vital Signs (last 24 hours): Temp Pulse Resp BP Pulse Ox 98.9 F 66 17 158/70 H 95 01/18/17 22:00 01/18/17 22:00 01/18/17 22:00 01/18/17 22:00 01/18/17 22:00 - Medications Medications: Current Medications Amlodipine Besylate (Norvasc) 10 mg PO QPM [facility] Last Admin: 01/18/17 17:48 Dose: 10 mg Artificial Tears (Artificial Tears) 2 drop OU Q6 PRN PRN Reason: Dry eyes Last Admin: 01/18/17 08:48 Dose: 2 drp Aspirin (Ecotrin) 81 mg PO QPM [facility] Last Admin: 01/18/17 17:48 Dose: 81 mg Atorvastatin Calcium (Lipitor) 20 mg PO DAILY [facility] Last Admin: 01/18/17 08:52 Dose: 20 mg Clopidogrel Bisulfate (Plavix) 75 mg PO QPM [facility] Last Admin: 01/18/17 17:48 Dose: 75 mg Dextrose (Glutose 15) 0 gm PO ONCE PRN; Protocol PRN Reason: Hypoglycemia Protocol Dextrose (Dextrose 50% Inj) 0 ml IV STAT PRN; Protocol PRN Reason: Hyglycemia Protocol Gabapentin (Neurontin) 100 mg PO TID [facility] Last Admin: 01/18/17 16:00 Dose: 100 mg Glipizide (Glucotrol Xl) 10 mg PO BID [facility] Last Admin: 01/18/17 16:00 Dose: 10 mg Glucagon (Glucagen Diagnostic Kit) 0 mg IM STAT PRN; Protocol PRN Reason: Hypoglycemia Protocol Guaifenesin/Dextromethorphan (Robitussin Dm) 10 ml PO Q6 PRN PRN Reason: Cough Last Admin: 01/18/17 08:53 Dose: 10 ml Home Med (Lisinopril/Hydrochlorothiazide [Zestoretic 20-25 Mg Tablet]) 1 tab PO BID [facility] Last Admin: 01/14/17 19:39 Dose: Not Given Home Med (Multivitamin [Multi-Vitamin Daily]) 1 tab PO DAILY [facility] Hydrochlorothiazide (Hydrodiuril) 25 mg PO DAILY [facility] Last Admin: 01/18/17 08:53 Dose: 25 mg Cefazolin Sodium 2 gm/ Sodium (Chloride) 100 mls @ 100 mls/hr IVPB Q8 [facility] Last Admin: 01/19/17 00:49 Dose: 100 mls/hr Ibuprofen (Motrin Tab) 600 mg PO Q6 PRN PRN Reason: Pain, Mild (1-3) Last Admin: 01/18/17 23:07 Dose: 600 mg Insulin Detemir (Levemir) 28 units SC HS [facility] Insulin Human Lispro (Humalog) 0 units SC ACHS [facility] PRN Reason: Protocol Last Admin: 01/18/17 22:06 Dose: Not Given Insulin Human Lispro (Humalog) 6 units SC ACTID [facility] Last Admin: 01/18/17 17:50 Dose: 6 units Lisinopril (Zestril) 20 mg PO DAILY [facility] Last Admin: 01/18/17 08:51 Dose: 20 mg Multivitamins/Minerals (Therapeutic-M Tab) 1 tab PO DAILY [facility] Last Admin: 01/18/17 08:51 Dose: 1 tab Mupirocin (Bactroban Ointment) 1 applic TOP BID [facility] Last Admin: 01/18/17 17:55 Dose: Not Given Mvfij-1-Qmpt Ethyl Esters (Lovaza) 1 gm PO BID [facility] Last Admin: 01/18/17 16:01 Dose: 1 gm - Labs Labs: 01/18/17 08:15 01/18/17 08:15 PT 11.8 SECONDS (9.6-11.2) H 01/14/17 13:25 INR 1.13 (0.92-1.08) H 01/14/17 13:25 APTT 30.4 SECONDS (23.3-32.5) 01/14/17 13:25 - Constitutional Appears: Well, Non-toxic, No Acute Distress - Extremities Exam Additional comments: Right lower extremity focused exam: VASC: DP pulse palpable 2/4, PT pulse 2/4, Temperature gradient runs warm to warm distal to proximal. NEURO: Gross sensation diminished. ORTHO: Previous TMA amputation sites noted b/l. No pain on palpation to right leg or foot. DERM: Ulceration measure approximately 0.4 cm x 0.4 cm x 0.3 cm noted on the plantar aspect of the right foot around the 4th and 5th metatarsal bases,base is granular, periwound is hyperkeratotic. No probe to bone, scant amount of sero -sanguineous drainage noted. No tenderness, no malodor, no probe to bone noted. Right foot and Right lee are erythematous with non-pitting edema with no increased warmth noted, improving. No drainage, no purulences, no fluctuance. - Neurological Exam Neurological Exam: Alert, Awake, Oriented x3 - Psychiatric Exam Psychiatric exam: Normal Affect, Normal Mood Assessment and Plan - Assessment and Plan (Free Text) Assessment: 71 year old male with right foot plantar ulcer secondary to diabetes and right lower extremity cellulits-resolving Plan: Patient examined and evaluated at bedside Chart, labs, vitals reviewed: afebrile, WBC 10.7 (01/18/17) Discussed with attending Dr. Malone Continue IVabx per ID -Ancef 2g q8 per Right foot radiographs- soft tissue swelling without acute articular or osseous abnormality Wound culture: Citrobacter Diversus and staph aureus Bone scan pending Right foot dressed with bactroban ointment and DSD Podiatry will continue to follow patient while in house
[2017-01-19 07:36] LABS: HEMATOCRIT 32.2 % (35.0-51.0); MEAN CELL VOLUME 83.7 fl (80.0-94.0); MEAN CORPUSCULAR HEMOGLOBIN 28.6 pg (27.0-31.0); MEAN CORPUSCULAR HGB CONC 34.2 g/dL (33.0-37.0); RED CELL DISTRIBUTION WIDTH 14.7 % (11.5-14.5); WHITE BLOOD COUNT 10.6 K/uL (4.8-10.8)
--- NOTE | 2017-01-19 07:51 | PN ---
DATE: 01/19/2017 The patient seen and examined. Interim events noted. Consults noted, appreciated. Infectious disea se and podiatry consult and intervention noted and appreciated. The patient remains on regular medic al floor. Feels okay. No specific complaints of chest pain or shortness of breath. PHYSICAL EXAMINATION: GENERAL: The patient is in no acute distress. VITAL SIGNS: Stable. HEART: S1, S2 normal, regular. LUNGS: Good bilateral air entry. ABDOMEN: Soft, nontender. EXTREMITIES: The patient has ____ essentially unchanged. No edema, no calf swelling, no tenderness, no acute ischemia. CENTRAL NERVOUS SYSTEM: Essentially unchanged. DIAGNOSTIC DATA: Available diagnostic data reviewed. Blood culture is positive for Staph aureus. PLAN: As ordered. Deshawn Benitez MD cc: [id number] TT: 01/19/2017 07:50:31 Confirmation # [id number] Dictation # [id number] mn
[2017-01-19 07:56] LABS: ALB/GLOB RATIO 0.9 (1.0-2.1); ALKALINE PHOSPHATASE 92 U/L (38-126); ALT/SGPT 44 U/L (21-72); AST/SGOT 39 U/L (17-59); BILIRUBIN,TOTAL 0.4 mg/dl (0.2-1.3); BLOOD UREA NITROGEN 15 mg/dl (9-20); CALCIUM 9.3 mg/dL (8.4-10.2); CARBON DIOXIDE 33 mmol/L (22-30); CHLORIDE 94 mmol/L (98-107); GFR AFRICAN-AMERICAN > 60; GLUCOSE,RANDOM 203 mg/dL (75-110); POTASSIUM 3.4 MMOL/L (3.6-5.0); SODIUM 139 mmol/l (132-148)
[2017-01-19] MEDS: Insulin Lispro (humaLOG) 100 Units/ml Inj SC SCH ×7 (09:03→21:40)
[2017-01-19] MEDS: Multivitamin With Minerals Tab PO SCH (09:15)
[2017-01-19] MEDS: Omega-3-Acid Ethyl Esters 1 GM Cap PO SCH ×2 (09:15→18:03)
[2017-01-19] MEDS: GlipiZIDE 10 mg SR Tab PO SCH ×2 (09:15→18:05)
[2017-01-19] MEDS: Artificial Tears Opht Soln OU PRN (09:38)
--- NOTE | 2017-01-19 11:17 | CP.PCM.PN ---
Subjective - Date & Time of Evaluation Date of Evaluation: 01/19/17 Time of Evaluation: 08:00 - Subjective Subjective: await bone scan improving on IV ancef possible TCU Objective - Vital Signs/Intake and Output Vital Signs (last 24 hours): Temp Pulse Resp BP Pulse Ox 98.6 F 66 18 158/70 H 95 01/19/17 09:00 01/19/17 09:14 01/19/17 09:00 01/19/17 09:14 01/19/17 09:00 - Medications Medications: Current Medications Amlodipine Besylate (Norvasc) 10 mg PO QPM [facility] Last Admin: 01/18/17 17:48 Dose: 10 mg Artificial Tears (Artificial Tears) 2 drop OU Q6 PRN PRN Reason: Dry eyes Last Admin: 01/19/17 09:38 Dose: 2 drp Aspirin (Ecotrin) 81 mg PO QPM [facility] Last Admin: 01/18/17 17:48 Dose: 81 mg Atorvastatin Calcium (Lipitor) 20 mg PO DAILY [facility] Last Admin: 01/19/17 09:15 Dose: 20 mg Clopidogrel Bisulfate (Plavix) 75 mg PO QPM [facility] Last Admin: 01/18/17 17:48 Dose: 75 mg Dextrose (Glutose 15) 0 gm PO ONCE PRN; Protocol PRN Reason: Hypoglycemia Protocol Dextrose (Dextrose 50% Inj) 0 ml IV STAT PRN; Protocol PRN Reason: Hyglycemia Protocol Gabapentin (Neurontin) 100 mg PO TID [facility] Last Admin: 01/19/17 09:14 Dose: 100 mg Glipizide (Glucotrol Xl) 10 mg PO BID [facility] Last Admin: 01/19/17 09:15 Dose: 10 mg Glucagon (Glucagen Diagnostic Kit) 0 mg IM STAT PRN; Protocol PRN Reason: Hypoglycemia Protocol Guaifenesin/Dextromethorphan (Robitussin Dm) 10 ml PO Q6 PRN PRN Reason: Cough Last Admin: 01/18/17 08:53 Dose: 10 ml Home Med (Lisinopril/Hydrochlorothiazide [Zestoretic 20-25 Mg Tablet]) 1 tab PO BID [facility] Last Admin: 01/14/17 19:39 Dose: Not Given Home Med (Multivitamin [Multi-Vitamin Daily]) 1 tab PO DAILY [facility] Hydrochlorothiazide (Hydrodiuril) 25 mg PO DAILY [facility] Last Admin: 01/19/17 09:14 Dose: 25 mg Cefazolin Sodium 2 gm/ Sodium (Chloride) 100 mls @ 100 mls/hr IVPB Q8 [facility] Last Admin: 01/19/17 09:41 Dose: 100 mls/hr Ibuprofen (Motrin Tab) 600 mg PO Q6 PRN PRN Reason: Pain, Mild (1-3) Last Admin: 01/19/17 09:13 Dose: 600 mg Insulin Detemir (Levemir) 28 units SC HS [facility] Insulin Human Lispro (Humalog) 0 units SC ACHS [facility] PRN Reason: Protocol Last Admin: 01/19/17 09:03 Dose: 3 units Insulin Human Lispro (Humalog) 6 units SC ACTID [facility] Last Admin: 01/19/17 09:03 Dose: 6 units Lisinopril (Zestril) 20 mg PO DAILY [facility] Last Admin: 01/19/17 09:14 Dose: 20 mg Multivitamins/Minerals (Therapeutic-M Tab) 1 tab PO DAILY [facility] Last Admin: 01/19/17 09:15 Dose: 1 tab Mupirocin (Bactroban Ointment) 1 applic TOP BID [facility] Last Admin: 01/19/17 09:17 Dose: 1 applic [id number]-[id number] Ethyl Esters (Lovaza) 1 gm PO BID [facility] Last Admin: 01/19/17 09:15 Dose: 1 gm - Labs Labs: 01/19/17 06:45 01/19/17 06:45 PT 11.8 SECONDS (9.6-11.2) H 01/14/17 13:25 INR 1.13 (0.92-1.08) H 01/14/17 13:25 APTT 30.4 SECONDS (23.3-32.5) 01/14/17 13:25 - Constitutional Appears: Non-toxic, Chronically Ill - Head Exam Head Exam: NORMOCEPHALIC - Eye Exam Eye Exam: PERRL. absent: Scleral icterus - ENT Exam ENT Exam: Mucous Membranes Dry - Neck Exam Neck Exam: absent: Lymphadenopathy - Respiratory Exam Respiratory Exam: Decreased Breath Sounds - Cardiovascular Exam Cardiovascular Exam: REGULAR RHYTHM - GI/Abdominal Exam GI & Abdominal Exam: Distended, Soft - Rectal Exam Rectal Exam: Deferred Assessment and Plan (1) Cellulitis Status: Acute (2) Diabetic foot ulcers Status: Acute (3) Controlled type 2 diabetes mellitus with hyperglycemia Status: Chronic (4) Essential (primary) hypertension Status: Chronic (5) Mixed hyperlipidemia Status: Chronic
[2017-01-19] MEDS ORDERED: Potassium Chloride 20 mEq ER Tab PO ONE (12:12)
--- NOTE | 2017-01-19 14:38 | NM ---
PROCEDURE: Three-phase bone scan HISTORY: RLE cellulitis, r/o OM COMPARISON: 01/14/2017 right foot radiographs. TECHNIQUE: Radionuclide dose: 25.9 Tc99m MDP Site of administration: Indwelling intravenous line Technique: Three-phase FINDINGS: Flow component: Increased flow to the right foot laterally extending to the level of the amputation primarily affecting tarsal bones, cuboid. Blood pool component: In intense accumulation of radionuclide laterally at the level of the cuboid/5th metatarsal stump Delayed images at 3:00: Intense retention of radionuclide corresponding findings on flow and blood pool components. IMPRESSION: Positive 3 phase bone scan for acute osseous process/osteomyelitis at an in the vicinity of the stump, of cuboid and 5th metatarsal remnant.
--- NOTE | 2017-01-20 07:22 | CP.PCM.PN ---
Subjective - Date & Time of Evaluation Date of Evaluation: 01/20/17 Time of Evaluation: 07:20 - Subjective Subjective: 71 year old male was seen resting comfortably at bedside regarding redness to the right lower extremity with right foot plantar ulcer. Patient is in no acute distress, AAOx3. Dressing is clean, dry, intact to right foot. He states he feels good today. Denies any pain to his lower extremities. He denies any n/v/f/ c/sob/cp. Objective - Vital Signs/Intake and Output Vital Signs (last 24 hours): Temp Pulse Resp BP Pulse Ox 98.2 F 67 20 161/82 H 20 L 01/19/17 20:46 01/19/17 20:46 01/19/17 17:10 01/19/17 20:46 01/19/17 20:46 - Medications Medications: Current Medications Amlodipine Besylate (Norvasc) 10 mg PO QPM [facility] Last Admin: 01/19/17 18:03 Dose: 10 mg Artificial Tears (Artificial Tears) 2 drop OU Q6 PRN PRN Reason: Dry eyes Last Admin: 01/19/17 09:38 Dose: 2 drp Aspirin (Ecotrin) 81 mg PO QPM [facility] Last Admin: 01/19/17 18:04 Dose: 81 mg Atorvastatin Calcium (Lipitor) 20 mg PO DAILY [facility] Last Admin: 01/19/17 09:15 Dose: 20 mg Clopidogrel Bisulfate (Plavix) 75 mg PO QPM [facility] Last Admin: 01/19/17 18:03 Dose: 75 mg Dextrose (Glutose 15) 0 gm PO ONCE PRN; Protocol PRN Reason: Hypoglycemia Protocol Dextrose (Dextrose 50% Inj) 0 ml IV STAT PRN; Protocol PRN Reason: Hyglycemia Protocol Gabapentin (Neurontin) 100 mg PO TID [facility] Last Admin: 01/19/17 18:03 Dose: 100 mg Glipizide (Glucotrol Xl) 10 mg PO BID [facility] Last Admin: 01/19/17 18:05 Dose: 10 mg Glucagon (Glucagen Diagnostic Kit) 0 mg IM STAT PRN; Protocol PRN Reason: Hypoglycemia Protocol Guaifenesin/Dextromethorphan (Robitussin Dm) 10 ml PO Q6 PRN PRN Reason: Cough Last Admin: 01/18/17 08:53 Dose: 10 ml Home Med (Lisinopril/Hydrochlorothiazide [Zestoretic 20-25 Mg Tablet]) 1 tab PO BID [facility] Last Admin: 01/14/17 19:39 Dose: Not Given Home Med (Multivitamin [Multi-Vitamin Daily]) 1 tab PO DAILY [facility] Hydrochlorothiazide (Hydrodiuril) 25 mg PO DAILY [facility] Last Admin: 01/19/17 09:14 Dose: 25 mg Cefazolin Sodium 2 gm/ Sodium (Chloride) 100 mls @ 100 mls/hr IVPB Q8 [facility] Last Admin: 01/19/17 23:59 Dose: 100 mls/hr Ibuprofen (Motrin Tab) 600 mg PO Q6 PRN PRN Reason: Pain, Mild (1-3) Last Admin: 01/19/17 23:52 Dose: 600 mg Insulin Detemir (Levemir) 32 units SC HS [facility] Insulin Human Lispro (Humalog) 0 units SC ACHS [facility] PRN Reason: Protocol Last Admin: 01/19/17 21:40 Dose: Not Given Insulin Human Lispro (Humalog) 6 units SC ACTID [facility] Last Admin: 01/19/17 18:01 Dose: 6 units Lisinopril (Zestril) 20 mg PO DAILY [facility] Last Admin: 01/19/17 09:14 Dose: 20 mg Multivitamins/Minerals (Therapeutic-M Tab) 1 tab PO DAILY [facility] Last Admin: 01/19/17 09:15 Dose: 1 tab Mupirocin (Bactroban Ointment) 1 applic TOP BID [facility] Last Admin: 01/19/17 18:04 Dose: Not Given [id number]-[id number] Ethyl Esters (Lovaza) 1 gm PO BID [facility] Last Admin: 01/19/17 18:03 Dose: 1 gm - Labs Labs: 01/19/17 06:45 01/19/17 06:45 PT 11.8 SECONDS (9.6-11.2) H 01/14/17 13:25 INR 1.13 (0.92-1.08) H 01/14/17 13:25 APTT 30.4 SECONDS (23.3-32.5) 01/14/17 13:25 - Constitutional Appears: Well, Non-toxic, No Acute Distress - Extremities Exam Additional comments: Right lower extremity focused exam: VASC: DP pulse palpable 2/4, PT pulse 2/4, Temperature gradient runs warm to warm distal to proximal. NEURO: Gross sensation diminished. ORTHO: Previous TMA amputation sites noted b/l. No pain on palpation to right leg or foot. DERM: Ulceration measure approximately 0.4 cm x 0.4 cm x 0.3 cm noted on the plantar aspect of the right foot around the 4th and 5th metatarsal bases,base is granular, periwound is hyperkeratotic. No probe to bone, no drainage noted. No tenderness, no malodor noted. Right foot and Right lee are erythematous with non-pitting edema with no increased warmth noted, improving. No drainage, no purulences, no fluctuance. - Neurological Exam Neurological Exam: Alert, Awake, Oriented x3 - Psychiatric Exam Psychiatric exam: Normal Affect, Normal Mood Assessment and Plan - Assessment and Plan (Free Text) Assessment: 71 year old male with right foot plantar ulcer secondary to diabetes and right lower extremity cellulits-resolving Plan: Patient examined and evaluated at bedside Chart, labs, vitals reviewed: afebrile, WBC 12.3 (01/20/17) Discussed with attending Dr. Malone Continue IV abx per ID -Cefepime 1g IVPB Q12, Vanco 1,200mg IVPB Q12 Continue empiric IV abx Right foot radiographs- soft tissue swelling without acute articular or osseous abnormality Wound culture: Citrobacter Diversus and staph aureus Bone scan IMPRESSION:Positive 3 phase bone scan for acute osseous process/ osteomyelitis at an in the vicinity of the stump, of cuboid and 5th metatarsal remnant. Right foot dressed with bactroban ointment and DSD Patient for PICC today Podiatry will continue to follow patient while in house Patient to follow up with Dr. Malone in office upon D/C
--- NOTE | 2017-01-20 07:36 | CP.PCM.PN ---
<Lashell Bauer - Last Filed: 01/20/17 10:13> Subjective - Date & Time of Evaluation Date of Evaluation: 01/20/17 Time of Evaluation: 07:25 - Subjective Subjective: 71M seen and examined at bedside with attending. Pt has no acute complaints, denies SOB, chest pain, foot pain. Objective - Vital Signs/Intake and Output Vital Signs (last 24 hours): Temp Pulse Resp BP Pulse Ox 36.8 C 67 20 161/82 H 20 L 01/19/17 20:46 01/19/17 20:46 01/19/17 17:10 01/19/17 20:46 01/19/17 20:46 - Medications Medications: Current Medications Amlodipine Besylate (Norvasc) 10 mg PO QPM [facility] Last Admin: 01/19/17 18:03 Dose: 10 mg Artificial Tears (Artificial Tears) 2 drop OU Q6 PRN PRN Reason: Dry eyes Last Admin: 01/19/17 09:38 Dose: 2 drp Aspirin (Ecotrin) 81 mg PO QPM [facility] Last Admin: 01/19/17 18:04 Dose: 81 mg Atorvastatin Calcium (Lipitor) 20 mg PO DAILY [facility] Last Admin: 01/19/17 09:15 Dose: 20 mg Clopidogrel Bisulfate (Plavix) 75 mg PO QPM [facility] Last Admin: 01/19/17 18:03 Dose: 75 mg Dextrose (Glutose 15) 0 gm PO ONCE PRN; Protocol PRN Reason: Hypoglycemia Protocol Dextrose (Dextrose 50% Inj) 0 ml IV STAT PRN; Protocol PRN Reason: Hyglycemia Protocol Gabapentin (Neurontin) 100 mg PO TID [facility] Last Admin: 01/19/17 18:03 Dose: 100 mg Glipizide (Glucotrol Xl) 10 mg PO BID [facility] Last Admin: 01/19/17 18:05 Dose: 10 mg Glucagon (Glucagen Diagnostic Kit) 0 mg IM STAT PRN; Protocol PRN Reason: Hypoglycemia Protocol Guaifenesin/Dextromethorphan (Robitussin Dm) 10 ml PO Q6 PRN PRN Reason: Cough Last Admin: 01/18/17 08:53 Dose: 10 ml Home Med (Lisinopril/Hydrochlorothiazide [Zestoretic 20-25 Mg Tablet]) 1 tab PO BID [facility] Last Admin: 01/14/17 19:39 Dose: Not Given Home Med (Multivitamin [Multi-Vitamin Daily]) 1 tab PO DAILY [facility] Hydrochlorothiazide (Hydrodiuril) 25 mg PO DAILY [facility] Last Admin: 01/19/17 09:14 Dose: 25 mg Cefazolin Sodium 2 gm/ Sodium (Chloride) 100 mls @ 100 mls/hr IVPB Q8 [facility] Last Admin: 01/19/17 23:59 Dose: 100 mls/hr Ibuprofen (Motrin Tab) 600 mg PO Q6 PRN PRN Reason: Pain, Mild (1-3) Last Admin: 01/19/17 23:52 Dose: 600 mg Insulin Detemir (Levemir) 32 units SC HS [facility] Insulin Human Lispro (Humalog) 0 units SC ACHS [facility] PRN Reason: Protocol Last Admin: 01/19/17 21:40 Dose: Not Given Insulin Human Lispro (Humalog) 6 units SC ACTID [facility] Last Admin: 01/19/17 18:01 Dose: 6 units Lisinopril (Zestril) 20 mg PO DAILY [facility] Last Admin: 01/19/17 09:14 Dose: 20 mg Multivitamins/Minerals (Therapeutic-M Tab) 1 tab PO DAILY [facility] Last Admin: 01/19/17 09:15 Dose: 1 tab Mupirocin (Bactroban Ointment) 1 applic TOP BID [facility] Last Admin: 01/19/17 18:04 Dose: Not Given Lhglu-8-Iqju Ethyl Esters (Lovaza) 1 gm PO BID [facility] Last Admin: 01/19/17 18:03 Dose: 1 gm - Labs Labs: 01/19/17 06:45 01/19/17 06:45 PT 11.8 SECONDS (9.6-11.2) H 01/14/17 13:25 INR 1.13 (0.92-1.08) H 01/14/17 13:25 APTT 30.4 SECONDS (23.3-32.5) 01/14/17 13:25 - Constitutional Appears: Well, No Acute Distress - Head Exam Head Exam: ATRAUMATIC, NORMAL INSPECTION - Eye Exam Eye Exam: EOMI, Normal appearance - ENT Exam ENT Exam: Mucous Membranes Moist, Normal Exam - Neck Exam Neck Exam: Full ROM, Normal Inspection - Respiratory Exam Respiratory Exam: Clear to Ausculation Bilateral, NORMAL BREATHING PATTERN. absent: Rales, Wheezes - Cardiovascular Exam Cardiovascular Exam: REGULAR RHYTHM. absent: JVD - GI/Abdominal Exam GI & Abdominal Exam: Soft, Normal Bowel Sounds. absent: Tenderness - Extremities Exam Additional comments: Right Lower Leg Exam: resolved erythema. absent: crepitus, tenderness Ankle exam: trace erythema. absent: tenderness Foot/Toe exam: amputation (TMA), ulceration, absent: crepitus - Neurological Exam Neurological Exam: Alert, Awake, Oriented x3 - Psychiatric Exam Psychiatric exam: Normal Affect, Normal Mood - Skin Skin Exam: Normal Color, Warm Assessment and Plan (1) Acute osteomyelitis of right foot Assessment & Plan: Surrounding cellulitis resolved, however bone scan showing AOM of foot and increasing leukocytosis this morning after discontinuation of Vancomycin despite cutlures indicating MSSA. Discussed w/ Dr Alejandra and agrees to restart Vancomycin and add Cefepime. - Continue to improve glucose control - Mgmnt as per Podiatry: drsg changes - Vancomycin trough 01/21 @ 20:30 (goal 15-20) - f/u ID Consult (Dr Alejandra): Vancomycin 1.2g Q12H, Cefepime 1g Q12H - c/w Gabapentin for discomfort - PICC placement - ?Home with visiting nurse and drsg changes Status: Acute (2) Controlled type 2 diabetes mellitus with hyperglycemia Assessment & Plan: Remains poorly controlled likely 2/2 to ongoing infection. TDD: 58 (based on useage). Readjusting as below - c/w home medications EXCEPT Metformin - Hypoglycemia bundle - Accu-checks - SSI, MOD w/ 10U ACTID - changed TDD: 58 (0.5kg/day) - Levemir 32U, SC, qHS Status: Chronic (3) DVT prophylaxis Assessment & Plan: Lovenox 40mg, SC, Daily Status: Acute (4) Essential (primary) hypertension Assessment & Plan: Controlled, c/w home medications Status: Chronic <Benitez,Deshawn K - Last Filed: 01/30/17 15:50> Objective - Vital Signs/Intake and Output Vital Signs (last 24 hours): Temp Pulse Resp BP Pulse Ox 97.9 F 64 20 128/73 99 01/23/17 08:24 01/23/17 08:24 01/23/17 08:24 01/23/17 08:24 04/14/17 08:24 - Labs Labs: 01/22/17 05:50 01/22/17 05:50 PT 11.8 SECONDS (9.6-11.2) H 01/14/17 13:25 INR 1.13 (0.92-1.08) H 01/14/17 13:25 APTT 30.4 SECONDS (23.3-32.5) 01/14/17 13:25 Assessment and Plan - Assessment and Plan (Free Text) Assessment: Patient was personally seen and examined by me in rounds with residents. Available labs and diagnostic data reviewed. Case, Patient's condition and management plan discussed with residents in rounds. Agree with resident's documentation. Plan: As ordered. Deshawn Benitez MD
[2017-01-20 07:41] LABS: MEAN CELL VOLUME 84.5 fl (80.0-94.0); MEAN CORPUSCULAR HEMOGLOBIN 27.8 pg (27.0-31.0); MEAN CORPUSCULAR HGB CONC 32.9 g/dL (33.0-37.0); RED CELL DISTRIBUTION WIDTH 14.7 % (11.5-14.5); WHITE BLOOD COUNT 12.3 K/uL (4.8-10.8)
[2017-01-20 08:02] LABS: ALB/GLOB RATIO 0.9 (1.0-2.1); ALKALINE PHOSPHATASE 82 U/L (38-126); ALT/SGPT 30 U/L (21-72); AST/SGOT 30 U/L (17-59); BILIRUBIN,TOTAL 0.4 mg/dl (0.2-1.3); BLOOD UREA NITROGEN 18 mg/dl (9-20); CALCIUM 9.2 mg/dL (8.4-10.2); CARBON DIOXIDE 32 mmol/L (22-30); CHLORIDE 95 mmol/L (98-107); GFR AFRICAN-AMERICAN > 60; GLUCOSE,RANDOM 211 mg/dL (75-110); POTASSIUM 3.6 MMOL/L (3.6-5.0); SODIUM 139 mmol/l (132-148); TOTAL PROTEIN 6.7 G/DL (6.3-8.2)
[2017-01-20] MEDS: Insulin Lispro (humaLOG) 100 Units/ml Inj SC SCH ×4 (09:10→22:11)
[2017-01-20] MEDS: Omega-3-Acid Ethyl Esters 1 GM Cap PO SCH ×2 (09:12→16:42)
[2017-01-20] MEDS: GlipiZIDE 10 mg SR Tab PO SCH ×2 (09:13→16:42)
[2017-01-20] MEDS: Artificial Tears Opht Soln OU PRN (09:14)
[2017-01-20] MEDS: Multivitamin With Minerals Tab PO SCH (09:15)
[2017-01-20] MEDS: Insulin Detemir 100 Units/ml Inj SC SCH ×2 (09:21→22:09)
[2017-01-20] MEDS: Cefepime 1 GM in Sodium Chloride 0.9% 100 ML IVPB SCH ×2 (10:13→22:05)
--- NOTE | 2017-01-20 10:30 | CP.PCM.PN ---
Subjective - Date & Time of Evaluation Date of Evaluation: 01/20/17 Time of Evaluation: 07:00 - Subjective Subjective: for picc line d/c on iv rx weekly labs wound care Objective - Vital Signs/Intake and Output Vital Signs (last 24 hours): Temp Pulse Resp BP Pulse Ox 98.4 F 66 20 160/73 H 96 01/20/17 07:42 01/20/17 09:13 01/20/17 07:42 01/20/17 09:13 01/20/17 07:42 - Medications Medications: Current Medications Amlodipine Besylate (Norvasc) 10 mg PO QPM [facility] Last Admin: 01/19/17 18:03 Dose: 10 mg Artificial Tears (Artificial Tears) 2 drop OU Q6 PRN PRN Reason: Dry eyes Last Admin: 01/20/17 09:14 Dose: 2 drp Aspirin (Ecotrin) 81 mg PO QPM [facility] Last Admin: 01/19/17 18:04 Dose: 81 mg Atorvastatin Calcium (Lipitor) 20 mg PO DAILY [facility] Last Admin: 01/20/17 09:12 Dose: 20 mg Clopidogrel Bisulfate (Plavix) 75 mg PO QPM [facility] Last Admin: 01/19/17 18:03 Dose: 75 mg Dextrose (Glutose 15) 0 gm PO ONCE PRN; Protocol PRN Reason: Hypoglycemia Protocol Dextrose (Dextrose 50% Inj) 0 ml IV STAT PRN; Protocol PRN Reason: Hyglycemia Protocol Enoxaparin Sodium (Lovenox) 40 mg SC HS [facility] PRN Reason: Protocol Gabapentin (Neurontin) 100 mg PO TID [facility] Last Admin: 01/20/17 09:12 Dose: 100 mg Glipizide (Glucotrol Xl) 10 mg PO BID [facility] Last Admin: 01/20/17 09:13 Dose: 10 mg Glucagon (Glucagen Diagnostic Kit) 0 mg IM STAT PRN; Protocol PRN Reason: Hypoglycemia Protocol Guaifenesin/Dextromethorphan (Robitussin Dm) 10 ml PO Q6 PRN PRN Reason: Cough Last Admin: 01/18/17 08:53 Dose: 10 ml Home Med (Lisinopril/Hydrochlorothiazide [Zestoretic 20-25 Mg Tablet]) 1 tab PO BID [facility] Last Admin: 01/14/17 19:39 Dose: Not Given Home Med (Multivitamin [Multi-Vitamin Daily]) 1 tab PO DAILY [facility] Hydrochlorothiazide (Hydrodiuril) 25 mg PO DAILY [facility] Last Admin: 01/20/17 09:17 Dose: 25 mg Cefepime HCl 1 gm/ Sodium (Chloride) 100 mls @ 100 mls/hr IVPB Q12 [facility] Vancomycin HCl 1,200 mg/ (Sodium Chloride) 250 mls @ 250 mls/hr IVPB Q12H [facility] Ibuprofen (Motrin Tab) 600 mg PO Q6 PRN PRN Reason: Pain, Mild (1-3) Last Admin: 01/19/17 23:52 Dose: 600 mg Insulin Detemir (Levemir) 32 units SC HS [facility] Last Admin: 01/20/17 09:21 Dose: Not Given Insulin Human Lispro (Humalog) 0 units SC ACHS [facility] PRN Reason: Protocol Last Admin: 01/20/17 09:10 Dose: 3 units Insulin Human Lispro (Humalog) 10 units SC ACTID [facility] Lisinopril (Zestril) 20 mg PO DAILY [facility] Last Admin: 01/20/17 09:13 Dose: 20 mg Multivitamins/Minerals (Therapeutic-M Tab) 1 tab PO DAILY [facility] Last Admin: 01/20/17 09:15 Dose: 1 tab Mupirocin (Bactroban Ointment) 1 applic TOP BID [facility] Last Admin: 01/20/17 09:16 Dose: 1 applic Mzbio-4-Lwsz Ethyl Esters (Lovaza) 1 gm PO BID [facility] Last Admin: 01/20/17 09:12 Dose: 1 gm - Labs Labs: 01/20/17 06:25 01/20/17 06:25 PT 11.8 SECONDS (9.6-11.2) H 01/14/17 13:25 INR 1.13 (0.92-1.08) H 01/14/17 13:25 APTT 30.4 SECONDS (23.3-32.5) 01/14/17 13:25 - Constitutional Appears: Non-toxic, Chronically Ill - Head Exam Head Exam: NORMAL INSPECTION - Eye Exam Eye Exam: PERRL. absent: Scleral icterus - ENT Exam ENT Exam: Mucous Membranes Dry - Neck Exam Neck Exam: absent: Lymphadenopathy - Respiratory Exam Respiratory Exam: Decreased Breath Sounds, Rhonchi - Cardiovascular Exam Cardiovascular Exam: REGULAR RHYTHM, +S1, +S2 - GI/Abdominal Exam GI & Abdominal Exam: Distended, Soft - Rectal Exam Rectal Exam: Deferred - Exam Exam: NORMAL INSPECTION - Extremities Exam Extremities Exam: absent: Pedal Edema - Back Exam Back Exam: absent: CVA tenderness (L), CVA tenderness (R) - Neurological Exam Neurological Exam: Alert, Awake, Oriented x3 Assessment and Plan (1) Cellulitis Status: Acute (2) Diabetic foot ulcers Status: Acute (3) Controlled type 2 diabetes mellitus with hyperglycemia Status: Chronic (4) Essential (primary) hypertension Status: Chronic (5) Mixed hyperlipidemia Status: Chronic
[2017-01-20] MEDS ORDERED: Lidocaine 1% Inj (20ml) ONE (11:46)
--- NOTE | 2017-01-20 12:22 | PCM.SURG1 ---
Surgeon's Initial Post Op Note - Surgeon's Notes Surgeon: West Rm MD Developer Advocate: NONE Type of Anesthesia: Local Pre-Operative Diagnosis: Infection requiring skilled nursing IV antibiotics Operative Findings: US showed a patent basilic vein. Post-Operative Diagnosis: Infection requiring skilled nursing IV antibiotics. Operation Performed: Right basilic vein single lumen picc placement, 37 cm. Tip in SVC. Specimen/Specimens Removed: NONE Estimated Blood Loss: EBL {In ML}: 2 Blood Products Given: N/A Drains Used: No Drains Post-Op Condition: Fair Date of Surgery/Procedure: 01/20/17 Time of Surgery/Procedure: 12:05
--- NOTE | 2017-01-20 12:31 | VASCULAR ---
PROCEDURE: Date of procedure: 01/20/2017 Procedure: 1. Placement of a right arm PICC with ultrasound and fluoroscopic guidance, CPT 34993 2. PICC tip confirmation with spot radiograph and is in the superior vena cava Medications: 1 percent lidocaine Total Fluoro time: 9.4 seconds Radiation: 1.19mGy EBL: 2 cc HISTORY: Bacteremia requiring long-term IV antibiotics TECHNIQUE: Following informed consent and procedure time-out, the patient was placed supine on the interventional table and the right arm prepped and draped in the usual sterile fashion. Ultrasound showed a patent and compressible right basilic vein. After the skin was anesthetized with lidocaine, the basilic vein was accessed with micro micropuncture technique using ultrasound guidance. A guidewire was then advanced under fluoroscopic guidance into the superior vena cava. An image documenting ultrasound guidance for vascular access was permanently saved. The length of the single-lumen 4 Samoan PICC was trimmed to 37 centimeters and advanced through a peel-away sheath. The PICC was position with tip of PICC confirm a spot radiograph the superior vena cava. The PICC was secured to the patient's skin. The PICC was flushed. A biopatch and sterile dressing was applied. IMPRESSION: Placement of a single-lumen 4 Samoan PICC trimmed to 37 centimeters via right basilic vein. The tip of the PICC is confirmed with spot radiograph and is in the superior vena cava.
[2017-01-20] MEDS: Enoxaparin 40 mg Syringe SC SCH (22:06)
[2017-01-21 07:47] LABS: ALB/GLOB RATIO 0.9 (1.0-2.1); ALKALINE PHOSPHATASE 76 U/L (38-126); ALT/SGPT 26 U/L (21-72); AST/SGOT 19 U/L (17-59); BILIRUBIN,TOTAL 0.4 mg/dl (0.2-1.3); BLOOD UREA NITROGEN 22 mg/dl (9-20); CALCIUM 9.6 mg/dL (8.4-10.2); CARBON DIOXIDE 27 mmol/L (22-30); CHLORIDE 99 mmol/L (98-107); GFR AFRICAN-AMERICAN > 60; GLUCOSE,RANDOM 203 mg/dL (75-110); SODIUM 140 mmol/l (132-148); TOTAL PROTEIN 7.2 G/DL (6.3-8.2)
--- NOTE | 2017-01-21 07:52 | CP.PCM.DIS ---
<LizetteLashell - Last Filed: 01/21/17 18:58> Provider - Provider Date of Admission: 01/14/17 16:07 Attending physician: Deshawn Benitez MD Time Spent in preparation of Discharge (in minutes): 45 Diagnosis - Discharge Diagnosis (1) Acute osteomyelitis of right foot Status: Acute Comment: Although wound culture/blood culture both grew MSSA patient's leukocytes jumped back up after Vancomycin d/c'd although patient remained afebrile. Will c/w Vancomycin, ESR improving. - Monitor BMP, CBC. - Podiatry performing drsg changes (2) Controlled type 2 diabetes mellitus with hyperglycemia Status: Chronic Comment: Continuing to improve on glucose control likely exacerbated by infection. - Re-started home Metformin. - Kept pt at same long-acting/meal coverage as prior day. - c/w monitoring (3) DVT prophylaxis Status: Acute Comment: 40mg Lovenox, SC, HS (4) Essential (primary) hypertension Status: Chronic Comment: Controlled, c/w home medications Hospital Course - Lab Results Lab Results: Micro Results 01/16/17 19:01 Urine Urine Culture - Final No Growth (<1,000 CFU/ML) 01/15/17 12:34 Foot - Right Gram Stain - Final 01/15/17 12:34 Foot - Right Wound Culture - Final Citrobacter Diversus Staphylococcus Aureus Most Recent Lab Values WBC 12.3 K/uL (4.8-10.8) H 01/20/17 06:25 RBC 3.67 Mil/uL (4.40-5.90) L 01/20/17 06:25 Hgb 10.2 g/dL (12.0-18.0) L 01/20/17 06:25 Hct 31.0 % (35.0-51.0) L 01/20/17 06:25 MCV 84.5 fl (80.0-94.0) 01/20/17 06:25 MCH 27.8 pg (27.0-31.0) 01/20/17 06:25 MCHC 32.9 g/dL (33.0-37.0) L 01/20/17 06:25 RDW 14.7 % (11.5-14.5) H 01/20/17 06:25 Plt Count 454 K/uL (130-400) H 01/20/17 06:25 MPV 6.2 fl (7.2-11.7) L 01/18/17 08:15 Neut % (Auto) 76.2 % (50.0-75.0) H 01/18/17 08:15 Lymph % (Auto) 9.4 % (20.0-40.0) L 01/18/17 08:15 [place] % (Auto) 10.1 % (0.0-10.0) H 01/18/17 08:15 Eos % (Auto) 3.6 % (0.0-4.0) 01/18/17 08:15 Baso % (Auto) 0.7 % (0.0-2.0) 01/18/17 08:15 Neut # 8.2 K/uL (1.8-7.0) H 01/18/17 08:15 Lymph # 1.0 K/uL (1.0-4.3) 01/18/17 08:15 [place] # 1.1 K/uL (0.0-0.8) H 01/18/17 08:15 Eos # 0.4 K/uL (0.0-0.7) 01/18/17 08:15 Baso # 0.1 K/uL (0.0-0.2) 01/18/17 08:15 Neutrophils % (Manual) 83 % (42-75) H 01/18/17 08:15 Lymphocytes % (Manual) 10 % (20-50) L 01/18/17 08:15 Reactive Lymphs % 2 % (0-0) H 01/14/17 13:25 Monocytes % (Manual) 6 % (0-10) 01/18/17 08:15 Basophils % (Manual) 1 % (0-2) 01/18/17 08:15 Toxic Granulation Present 01/14/17 13:25 Platelet Estimate Normal (NORMAL) 01/18/17 08:15 Large Platelets Present 01/18/17 08:15 Hypochromasia (manual) Slight 01/18/17 08:15 Anisocytosis (manual) Slight 01/18/17 08:15 Microcytosis (manual) Slight 01/18/17 08:15 Ovalocytes Slight 01/18/17 08:15 ESR 102 mm/hr (0-20) H 01/16/17 10:57 PT 11.8 SECONDS (9.6-11.2) H 01/14/17 13:25 INR 1.13 (0.92-1.08) H 01/14/17 13:25 APTT 30.4 SECONDS (23.3-32.5) 01/14/17 13:25 Sodium 139 mmol/l (132-148) 01/20/17 06:25 Potassium 3.6 MMOL/L (3.6-5.0) 01/20/17 06:25 Chloride 95 mmol/L (98-107) L 01/20/17 06:25 Carbon Dioxide 32 mmol/L (22-30) H 01/20/17 06:25 Anion Gap 16 (10-20) 01/20/17 06:25 BUN 18 mg/dl (9-20) 01/20/17 06:25 Creatinine 0.8 mg/dL (0.8-1.5) 01/20/17 06:25 Est GFR ( Amer) > 60 01/20/17 06:25 Est GFR (Non-Af Amer) > 60 01/20/17 06:25 POC Glucose (mg/dL) 234 mg/dL (65-110) H 01/21/17 05:48 Random Glucose 211 mg/dL (75-110) H 01/20/17 06:25 Calcium 9.2 mg/dL (8.4-10.2) 01/20/17 06:25 Total Bilirubin 0.4 mg/dl (0.2-1.3) 01/20/17 06:25 AST 30 U/L (17-59) 01/20/17 06:25 ALT 30 U/L (21-72) 01/20/17 06:25 Alkaline Phosphatase 82 U/L (38-126) 01/20/17 06:25 Total Protein 6.7 G/DL (6.3-8.2) 01/20/17 06:25 Albumin 3.2 g/dL (3.5-5.0) L 01/20/17 06:25 Globulin 3.5 gm/dL (2.2-3.9) 01/20/17 06:25 Albumin/Globulin Ratio 0.9 (1.0-2.1) L 01/20/17 06:25 Procalcitonin 0.10 NG/ML (0.19-0.49) L 01/17/17 05:30 Urine Color Yellow (YELLOW) 01/16/17 19:01 Urine Clarity Clear (Clear) 01/16/17 19:01 Urine pH 6.0 (5.0-8.0) 01/16/17 19:01 Ur Specific [place] 1.021 (1.003-1.030) 01/16/17 19:01 Urine Protein 100 mg/dL (NEGATIVE) 01/16/17 19:01 Urine Glucose (UA) >=500 mg/dL (Normal) 01/16/17 19:01 Urine Ketones Negative mg/dL (NEGATIVE) 01/16/17 19:01 Urine Blood Negative (NEGATIVE) 01/16/17 19:01 Urine Nitrate Negative (NEGATIVE) 01/16/17 19:01 Urine Bilirubin Negative (NEGATIVE) 01/16/17 19:01 Urine Urobilinogen 2.0 mg/dL (0.2-1.0) 01/16/17 19:01 Ur Leukocyte Esterase Neg Rita/uL (Negative) 01/16/17 19:01 Urine RBC (Auto) 1 /hpf (0-3) 01/16/17 19:01 Urine Microscopic WBC 1 /hpf (0-5) 01/16/17 19:01 Ur Squamous Epith Cells < 1 /hpf (0-5) 01/16/17 19:01 Vancomycin Trough 8.9 ug/mL (5.0-10.0) 01/18/17 08:15 - Hospital Course Hospital Course: 71M admitted for RIGHT foot distal RLE superficial cellulitis. Bone Scan positive for AOM of right foot and now improving on IV Vancomycin/Cefepime although cultures grew MSSA organism. Dr Alejandra (ID) fashion consultant selling as well as Dr Viera (Podiatry). Patient is stable for discharge when placement has been arranged. Discharge Exam - Head Exam Head Exam: ATRAUMATIC, NORMAL INSPECTION - Eye Exam Eye Exam: EOMI, Normal appearance - ENT Exam ENT Exam: Mucous Membranes Moist, Normal Exam - Neck Exam Neck exam: Full Rom, Normal Inspection - Respiratory Exam Respiratory Exam: NORMAL BREATHING PATTERN. absent: Rales, Wheezes - Cardiovascular Exam Cardiovascular Exam: absent: JVD - GI/Abdominal Exam GI & Abdominal Exam: Normal Bowel Sounds, Soft. absent: Tenderness - Extremities Exam Extremities exam: normal capillary refill Additional comments: RIGHT foot undergoing daily drsg changes by podiatry - Neurological Exam Neurological exam: Alert, Oriented x3 - Psychiatric Exam Psychiatric exam: Normal Affect, Normal Mood - Skin Skin Exam: Dry, Warm Discharge Plan - Discharge Medications Prescriptions: Linezolid [Zyvox] 600 mg PO BID #84 tab - Follow Up Plan Condition: STABLE Disposition: HOME/ ROUTINE Instructions: Cellulitis (DC), Peripherally Inserted Central Catheters and Midline Catheters (DC), Diabetes and Your Skin (DC) Additional Instructions: Complete entire 6 weeks of PO antibiotics. Follow up with Dr. Benitez in 1 week for blood work and continued monitoring. Follow up with Dr. Viera for continued wound care. Referrals: Deshawn Benitez MD [Staff Provider] - Ranjan Viera DPM [Staff Provider] - <Deshawn Benitez - Last Filed: 01/30/17 15:52> Provider - Provider Date of Admission: 01/14/17 16:07 Attending physician: Deshawn Benitez MD Hospital Course - Lab Results Lab Results: Micro Results 01/16/17 19:01 Urine Urine Culture - Final No Growth (<1,000 CFU/ML) 01/15/17 12:34 Foot - Right Gram Stain - Final 01/15/17 12:34 Foot - Right Wound Culture - Final Citrobacter Diversus Staphylococcus Aureus Most Recent Lab Values WBC 9.8 K/uL (4.8-10.8) 01/22/17 05:50 RBC 3.39 Mil/uL (4.40-5.90) L 01/22/17 05:50 Hgb 9.5 g/dL (12.0-18.0) L 01/22/17 05:50 Hct 28.8 % (35.0-51.0) L 01/22/17 05:50 MCV 85.0 fl (80.0-94.0) 01/22/17 05:50 MCH 28.1 pg (27.0-31.0) 01/22/17 05:50 MCHC 33.1 g/dL (33.0-37.0) 01/22/17 05:50 RDW 14.5 % (11.5-14.5) 01/22/17 05:50 Plt Count 505 K/uL (130-400) H 01/22/17 05:50 MPV 6.2 fl (7.2-11.7) L 01/18/17 08:15 Neut % (Auto) 76.2 % (50.0-75.0) H 01/18/17 08:15 Lymph % (Auto) 9.4 % (20.0-40.0) L 01/18/17 08:15 [place] % (Auto) 10.1 % (0.0-10.0) H 01/18/17 08:15 Eos % (Auto) 3.6 % (0.0-4.0) 01/18/17 08:15 Baso % (Auto) 0.7 % (0.0-2.0) 01/18/17 08:15 Neut # 8.2 K/uL (1.8-7.0) H 01/18/17 08:15 Lymph # 1.0 K/uL (1.0-4.3) 01/18/17 08:15 [place] # 1.1 K/uL (0.0-0.8) H 01/18/17 08:15 Eos # 0.4 K/uL (0.0-0.7) 01/18/17 08:15 Baso # 0.1 K/uL (0.0-0.2) 01/18/17 08:15 Neutrophils % (Manual) 83 % (42-75) H 01/18/17 08:15 Lymphocytes % (Manual) 10 % (20-50) L 01/18/17 08:15 Reactive Lymphs % 2 % (0-0) H 01/14/17 13:25 Monocytes % (Manual) 6 % (0-10) 01/18/17 08:15 Basophils % (Manual) 1 % (0-2) 01/18/17 08:15 Toxic Granulation Present 01/14/17 13:25 Platelet Estimate Normal (NORMAL) 01/18/17 08:15 Large Platelets Present 01/18/17 08:15 Hypochromasia (manual) Slight 01/18/17 08:15 Anisocytosis (manual) Slight 01/18/17 08:15 Microcytosis (manual) Slight 01/18/17 08:15 Ovalocytes Slight 01/18/17 08:15 ESR 7 mm/hr (0-20) 01/21/17 11:57 PT 11.8 SECONDS (9.6-11.2) H 01/14/17 13:25 INR 1.13 (0.92-1.08) H 01/14/17 13:25 APTT 30.4 SECONDS (23.3-32.5) 01/14/17 13:25 Sodium 143 mmol/l (132-148) 01/22/17 05:50 Potassium 4.2 MMOL/L (3.6-5.0) 01/22/17 05:50 Chloride 99 mmol/L (98-107) 01/22/17 05:50 Carbon Dioxide 30 mmol/L (22-30) 01/22/17 05:50 Anion Gap 18 (10-20) 01/22/17 05:50 BUN 41 mg/dl (9-20) H 01/22/17 05:50 Creatinine 0.8 mg/dL (0.8-1.5) 01/22/17 05:50 Est GFR ( Amer) > 60 01/22/17 05:50 Est GFR (Non-Af Amer) > 60 01/22/17 05:50 POC Glucose (mg/dL) 164 mg/dL (65-110) H 01/23/17 10:52 Random Glucose 130 mg/dL (75-110) H 01/22/17 05:50 Calcium 9.5 mg/dL (8.4-10.2) 01/22/17 05:50 Total Bilirubin 0.4 mg/dl (0.2-1.3) 01/21/17 06:20 AST 19 U/L (17-59) 01/21/17 06:20 ALT 26 U/L (21-72) 01/21/17 06:20 Alkaline Phosphatase 76 U/L (38-126) 01/21/17 06:20 Total Protein 7.2 G/DL (6.3-8.2) 01/21/17 06:20 Albumin 3.4 g/dL (3.5-5.0) L 01/21/17 06:20 Globulin 3.8 gm/dL (2.2-3.9) 01/21/17 06:20 Albumin/Globulin Ratio 0.9 (1.0-2.1) L 01/21/17 06:20 Procalcitonin 0.38 NG/ML (0.19-0.49) 01/21/17 06:20 Urine Color Yellow (YELLOW) 01/16/17 19:01 Urine Clarity Clear (Clear) 01/16/17 19:01 Urine pH 6.0 (5.0-8.0) 01/16/17 19:01 Ur Specific [place] 1.021 (1.003-1.030) 01/16/17 19:01 Urine Protein 100 mg/dL (NEGATIVE) 01/16/17 19:01 Urine Glucose (UA) >=500 mg/dL (Normal) 01/16/17 19:01 Urine Ketones Negative mg/dL (NEGATIVE) 01/16/17 19:01 Urine Blood Negative (NEGATIVE) 01/16/17 19: Urine Nitrate Negative (NEGATIVE) 01/16/17 19:01 Urine Bilirubin Negative (NEGATIVE) 01/16/17 19:01 Urine Urobilinogen 2.0 mg/dL (0.2-1.0) 01/16/17 19:01 Ur Leukocyte Esterase Neg Rita/uL (Negative) 01/16/17 19:01 Urine RBC (Auto) 1 /hpf (0-3) 01/16/17 19:01 Urine Microscopic WBC 1 /hpf (0-5) 01/16/17 19:01 Ur Squamous Epith Cells < 1 /hpf (0-5) 01/16/17 19:01 Vancomycin Trough 11.6 ug/mL (5.0-10.0) H 01/21/17 21:00
--- NOTE | 2017-01-21 07:53 | CP.PCM.PN ---
Subjective - Date & Time of Evaluation Date of Evaluation: 01/21/17 Time of Evaluation: 07:34 - Subjective Subjective: 71 year old male was seen resting comfortably at bedside regarding redness to the right lower extremity with right foot plantar ulcer. Patient is in no acute distress, AAOx3. Dressing is clean, dry, intact to right foot. He states he feels good today. Denies any pain to his lower extremities. He states he is going home today and he will be able to change the dressing to his right foot. He denies any n/v/f/c/sob/cp. Objective - Vital Signs/Intake and Output Vital Signs (last 24 hours): Temp Pulse Resp BP Pulse Ox 98.2 F 67 20 151/69 H 97 01/20/17 21:04 01/20/17 21:04 01/20/17 21:04 01/20/17 21:04 01/20/17 21:04 - Medications Medications: Current Medications Amlodipine Besylate (Norvasc) 10 mg PO QPM [facility] Last Admin: 01/20/17 17:22 Dose: 10 mg Artificial Tears (Artificial Tears) 2 drop OU Q6 PRN PRN Reason: Dry eyes Last Admin: 01/20/17 09:14 Dose: 2 drp Aspirin (Ecotrin) 81 mg PO QPM [facility] Last Admin: 01/20/17 17:22 Dose: 81 mg Atorvastatin Calcium (Lipitor) 20 mg PO DAILY [facility] Last Admin: 01/20/17 09:12 Dose: 20 mg Clopidogrel Bisulfate (Plavix) 75 mg PO QPM [facility] Last Admin: 01/20/17 17:23 Dose: 75 mg Dextrose (Glutose 15) 0 gm PO ONCE PRN; Protocol PRN Reason: Hypoglycemia Protocol Dextrose (Dextrose 50% Inj) 0 ml IV STAT PRN; Protocol PRN Reason: Hyglycemia Protocol Enoxaparin Sodium (Lovenox) 40 mg SC HS [facility] PRN Reason: Protocol Last Admin: 01/20/17 22:06 Dose: 40 mg Gabapentin (Neurontin) 100 mg PO TID [facility] Last Admin: 01/20/17 16:42 Dose: 100 mg Glipizide (Glucotrol Xl) 10 mg PO BID [facility] Last Admin: 01/20/17 16:42 Dose: 10 mg Glucagon (Glucagen Diagnostic Kit) 0 mg IM STAT PRN; Protocol PRN Reason: Hypoglycemia Protocol Guaifenesin/Dextromethorphan (Robitussin Dm) 10 ml PO Q6 PRN PRN Reason: Cough Last Admin: 01/18/17 08:53 Dose: 10 ml Home Med (Lisinopril/Hydrochlorothiazide [Zestoretic 20-25 Mg Tablet]) 1 tab PO BID [facility] Last Admin: 01/14/17 19:39 Dose: Not Given Home Med (Multivitamin [Multi-Vitamin Daily]) 1 tab PO DAILY [facility] Hydrochlorothiazide (Hydrodiuril) 25 mg PO DAILY [facility] Last Admin: 01/20/17 09:17 Dose: 25 mg Cefepime HCl 1 gm/ Sodium (Chloride) 100 mls @ 100 mls/hr IVPB Q12 [facility] Last Admin: 01/20/17 22:05 Dose: 100 mls/hr Vancomycin HCl 1,200 mg/ (Sodium Chloride) 250 mls @ 166.667 mls/hr IVPB Q12H [facility] Last Admin: 01/21/17 00:05 Dose: 166.667 mls/hr Ibuprofen (Motrin Tab) 600 mg PO Q6 PRN PRN Reason: Pain, Mild (1-3) Last Admin: 01/20/17 22:08 Dose: 600 mg Insulin Detemir (Levemir) 32 units SC HS [facility] Last Admin: 01/20/17 22:09 Dose: 32 units Insulin Human Lispro (Humalog) 0 units SC ACHS [facility] PRN Reason: Protocol Last Admin: 01/20/17 22:11 Dose: 2 units Insulin Human Lispro (Humalog) 10 units SC ACTID [facility] Last Admin: 01/20/17 13:01 Dose: 10 units Lisinopril (Zestril) 20 mg PO DAILY [facility] Last Admin: 01/20/17 09:13 Dose: 20 mg Multivitamins/Minerals (Therapeutic-M Tab) 1 tab PO DAILY [facility] Last Admin: 01/20/17 09:15 Dose: 1 tab Mupirocin (Bactroban Ointment) 1 applic TOP BID [facility] Last Admin: 01/20/17 16:41 Dose: Not Given Akapr-8-Arrk Ethyl Esters (Lovaza) 1 gm PO BID [facility] Last Admin: 01/20/17 16:42 Dose: 1 gm - Labs Labs: 01/20/17 06:25 01/20/17 06:25 PT 11.8 SECONDS (9.6-11.2) H 01/14/17 13:25 INR 1.13 (0.92-1.08) H 01/14/17 13:25 APTT 30.4 SECONDS (23.3-32.5) 01/14/17 13:25 - Constitutional Appears: Well, Non-toxic, No Acute Distress - Extremities Exam Additional comments: Right lower extremity focused exam: VASC: DP pulse palpable 2/4, PT pulse 2/4, Temperature gradient runs warm to warm distal to proximal. NEURO: Gross sensation diminished. ORTHO: Previous TMA amputation sites noted b/l. No pain on palpation to right leg or foot. DERM: Ulceration measure approximately 0.3 cm x 0.3 cm x 0.1 cm noted on the plantar aspect of the right foot around the 4th and 5th metatarsal bases,base is granular, periwound is hyperkeratotic. No probe to bone, no drainage noted. No tenderness, no malodor noted. Right foot and Right lee are mildly erythematous with non-pitting edema with no increased warmth noted, improving. No drainage, no purulences, no fluctuance. - Neurological Exam Neurological Exam: Alert, Awake, Oriented x3 - Psychiatric Exam Psychiatric exam: Normal Affect, Normal Mood Assessment and Plan - Assessment and Plan (Free Text) Assessment: 71 year old male with right foot plantar ulcer secondary to diabetes and right lower extremity cellulits-resolved Plan: Patient examined and evaluated at bedside Chart, labs, vitals reviewed: afebrile, WBC 12.3 (01/20/17) Discussed with attending Dr. Malone Continue IV abx per ID -Cefepime 1g IVPB Q12, Vanco 1,200mg IVPB Q12 Right foot radiographs- soft tissue swelling without acute articular or osseous abnormality Wound culture: Citrobacter Diversus and staph aureus Bone scan IMPRESSION:Positive 3 phase bone scan for acute osseous process/ osteomyelitis at an in the vicinity of the stump, of cuboid and 5th metatarsal remnant. Using a #10 blade, I excisionally debrided the hyperkeratotic tissue around the edges of the plantar ulcer. The wound measured 0.3 cm x 0.3 cm x 0.1 cm and was covered with bactroban, and DSD at the conclusion of the procedure Prescription for daily dressing changes and supplies given Patient to follow up with Dr. Malone in office upon D/C
[2017-01-21] MEDS: Cefepime 1 GM in Sodium Chloride 0.9% 100 ML IVPB SCH ×2 (08:50→21:19)
[2017-01-21] MEDS: Multivitamin With Minerals Tab PO SCH (08:51)
[2017-01-21] MEDS: GlipiZIDE 10 mg SR Tab PO SCH ×2 (08:51→17:21)
[2017-01-21] MEDS: Insulin Lispro (humaLOG) 100 Units/ml Inj SC SCH ×8 (08:52→22:05)
[2017-01-21] MEDS: Omega-3-Acid Ethyl Esters 1 GM Cap PO SCH ×2 (08:55→17:21)
[2017-01-21] MEDS: Artificial Tears Opht Soln OU PRN ×2 (09:34→17:20)
[2017-01-21 12:11] LABS: HEMATOCRIT 29.6 % (35.0-51.0); MEAN CELL VOLUME 84.1 fl (80.0-94.0); MEAN CORPUSCULAR HEMOGLOBIN 28.3 pg (27.0-31.0); MEAN CORPUSCULAR HGB CONC 33.7 g/dL (33.0-37.0); RED CELL DISTRIBUTION WIDTH 14.6 % (11.5-14.5); WHITE BLOOD COUNT 9.9 K/uL (4.8-10.8)
--- NOTE | 2017-01-21 12:36 | CP.PCM.PN ---
Subjective - Date & Time of Evaluation Date of Evaluation: 01/21/17 Time of Evaluation: 10:00 - Subjective Subjective: bood c/s + MSSA wound + MSSA iv rx in progress for transfer to [facility] consider monotherapy Objective - Vital Signs/Intake and Output Vital Signs (last 24 hours): Temp Pulse Resp BP Pulse Ox 97.9 F 69 20 145/75 99 01/21/17 09:00 01/21/17 08:54 01/21/17 07:40 01/21/17 08:54 01/21/17 07:40 - Medications Medications: Current Medications Amlodipine Besylate (Norvasc) 10 mg PO QPM [facility] Last Admin: 01/20/17 17:22 Dose: 10 mg Artificial Tears (Artificial Tears) 2 drop OU Q6 PRN PRN Reason: Dry eyes Last Admin: 01/21/17 09:34 Dose: 1 drp Aspirin (Ecotrin) 81 mg PO QPM [facility] Last Admin: 01/20/17 17:22 Dose: 81 mg Atorvastatin Calcium (Lipitor) 20 mg PO DAILY [facility] Last Admin: 01/21/17 09:35 Dose: 20 mg Clopidogrel Bisulfate (Plavix) 75 mg PO QPM [facility] Last Admin: 01/20/17 17:23 Dose: 75 mg Dextrose (Glutose 15) 0 gm PO ONCE PRN; Protocol PRN Reason: Hypoglycemia Protocol Dextrose (Dextrose 50% Inj) 0 ml IV STAT PRN; Protocol PRN Reason: Hyglycemia Protocol Enoxaparin Sodium (Lovenox) 40 mg SC HS EDER PRN Reason: Protocol Last Admin: 01/20/17 22:06 Dose: 40 mg Gabapentin (Neurontin) 100 mg PO TID [facility] Last Admin: 01/21/17 11:59 Dose: 100 mg Glipizide (Glucotrol Xl) 10 mg PO BID [facility] Last Admin: 01/21/17 08:51 Dose: 10 mg Glucagon (Glucagen Diagnostic Kit) 0 mg IM STAT PRN; Protocol PRN Reason: Hypoglycemia Protocol Guaifenesin/Dextromethorphan (Robitussin Dm) 10 ml PO Q6 PRN PRN Reason: Cough Last Admin: 01/18/17 08:53 Dose: 10 ml Home Med (Lisinopril/Hydrochlorothiazide [Zestoretic 20-25 Mg Tablet]) 1 tab PO BID [facility] Last Admin: 01/14/17 19:39 Dose: Not Given Home Med (Multivitamin [Multi-Vitamin Daily]) 1 tab PO DAILY [facility] Hydrochlorothiazide (Hydrodiuril) 25 mg PO DAILY [facility] Last Admin: 01/21/17 09:01 Dose: 25 mg Cefepime HCl 1 gm/ Sodium (Chloride) 100 mls @ 100 mls/hr IVPB Q12 [facility] Last Admin: 01/21/17 08:50 Dose: 100 mls/hr Vancomycin HCl 1,200 mg/ (Sodium Chloride) 250 mls @ 166.667 mls/hr IVPB Q12H [facility] Last Admin: 01/21/17 10:17 Dose: 166.667 mls/hr Ibuprofen (Motrin Tab) 600 mg PO Q6 PRN PRN Reason: Pain, Mild (1-3) Last Admin: 01/21/17 08:57 Dose: 600 mg Insulin Detemir (Levemir) 32 units SC HS [facility] Last Admin: 01/20/17 22:09 Dose: 32 units Insulin Human Lispro (Humalog) 0 units SC ACHS [facility] PRN Reason: Protocol Last Admin: 01/21/17 12:32 Dose: 3 units Insulin Human Lispro (Humalog) 10 units SC ACTID [facility] Last Admin: 01/21/17 12:33 Dose: 10 units Lisinopril (Zestril) 20 mg PO DAILY [facility] Last Admin: 01/21/17 08:54 Dose: 20 mg Metformin HCl (Glucophage) 1,000 mg PO BIDWM [facility] Last Admin: 01/21/17 10:17 Dose: 1,000 mg Multivitamins/Minerals (Therapeutic-M Tab) 1 tab PO DAILY [facility] Last Admin: 01/21/17 08:51 Dose: 1 tab Mupirocin (Bactroban Ointment) 1 applic TOP BID [facility] Last Admin: 01/21/17 08:51 Dose: 1 applic Lript-0-Ryxk Ethyl Esters (Lovaza) 1 gm PO BID [facility] Last Admin: 01/21/17 08:55 Dose: 1 gm - Labs Labs: 01/21/17 11:57 01/21/17 06:20 PT 11.8 SECONDS (9.6-11.2) H 01/14/17 13:25 INR 1.13 (0.92-1.08) H 01/14/17 13:25 APTT 30.4 SECONDS (23.3-32.5) 01/14/17 13:25 - Constitutional Appears: Non-toxic, Chronically Ill - Head Exam Head Exam: NORMOCEPHALIC - Eye Exam Eye Exam: PERRL. absent: Scleral icterus - ENT Exam ENT Exam: Mucous Membranes Dry - Neck Exam Neck Exam: absent: Lymphadenopathy - Respiratory Exam Respiratory Exam: Decreased Breath Sounds, Rhonchi - Cardiovascular Exam Cardiovascular Exam: REGULAR RHYTHM, +S1, +S2 - GI/Abdominal Exam GI & Abdominal Exam: Distended, Soft. absent: Tenderness - Rectal Exam Rectal Exam: Deferred Assessment and Plan (1) Cellulitis Status: Acute (2) Diabetic foot ulcers Status: Acute (3) Controlled type 2 diabetes mellitus with hyperglycemia Status: Chronic (4) Essential (primary) hypertension Status: Chronic (5) Mixed hyperlipidemia Status: Chronic
[2017-01-21] MEDS: Enoxaparin 40 mg Syringe SC SCH (22:04)
[2017-01-21] MEDS: Insulin Detemir 100 Units/ml Inj SC SCH (22:07)
--- NOTE | 2017-01-22 06:42 | CP.PCM.PN ---
<Lashell Bauer - Last Filed: 01/24/17 10:27> Subjective - Date & Time of Evaluation Date of Evaluation: 01/22/17 Time of Evaluation: 06:42 - Subjective Subjective: 71M seen and examined at bedside with attending. Pt denies any acute complaints. Specifically no SOB, chest pain, palpitations, foot pain and reports having a good appetite and bowel habits. Objective - Vital Signs/Intake and Output Vital Signs (last 24 hours): Temp Pulse Resp BP Pulse Ox 36.8 C 76 18 153/74 H 95 01/21/17 21:37 01/21/17 21:37 01/21/17 21:37 01/21/17 21:37 01/21/17 21:37 - Medications Medications: Current Medications Amlodipine Besylate (Norvasc) 10 mg PO QPM [facility] Last Admin: 01/21/17 17:21 Dose: 10 mg Artificial Tears (Artificial Tears) 2 drop OU Q6 PRN PRN Reason: Dry eyes Last Admin: 01/21/17 17:20 Dose: 2 drp Aspirin (Ecotrin) 81 mg PO QPM [facility] Last Admin: 01/21/17 17:20 Dose: 81 mg Atorvastatin Calcium (Lipitor) 20 mg PO DAILY [facility] Last Admin: 01/21/17 09:35 Dose: 20 mg Clopidogrel Bisulfate (Plavix) 75 mg PO QPM [facility] Last Admin: 01/21/17 17:21 Dose: 75 mg Dextrose (Glutose 15) 0 gm PO ONCE PRN; Protocol PRN Reason: Hypoglycemia Protocol Dextrose (Dextrose 50% Inj) 0 ml IV STAT PRN; Protocol PRN Reason: Hyglycemia Protocol Enoxaparin Sodium (Lovenox) 40 mg SC HS [facility] PRN Reason: Protocol Last Admin: 01/21/17 22:04 Dose: 40 mg Gabapentin (Neurontin) 100 mg PO TID [facility] Last Admin: 01/21/17 17:21 Dose: 100 mg Glipizide (Glucotrol Xl) 10 mg PO BID [facility] Last Admin: 01/21/17 17:21 Dose: 10 mg Glucagon (Glucagen Diagnostic Kit) 0 mg IM STAT PRN; Protocol PRN Reason: Hypoglycemia Protocol Guaifenesin/Dextromethorphan (Robitussin Dm) 10 ml PO Q6 PRN PRN Reason: Cough Last Admin: 01/18/17 08:53 Dose: 10 ml Home Med (Lisinopril/Hydrochlorothiazide [Zestoretic 20-25 Mg Tablet]) 1 tab PO BID [facility] Last Admin: 01/14/17 19:39 Dose: Not Given Home Med (Multivitamin [Multi-Vitamin Daily]) 1 tab PO DAILY [facility] Hydrochlorothiazide (Hydrodiuril) 25 mg PO DAILY [facility] Last Admin: 01/21/17 09:01 Dose: 25 mg Cefepime HCl 1 gm/ Sodium (Chloride) 100 mls @ 100 mls/hr IVPB Q12 [facility] Last Admin: 01/21/17 21:19 Dose: 100 mls/hr Vancomycin HCl 1,500 mg/ (Sodium Chloride) 250 mls @ 166.667 mls/hr IVPB Q12H [facility] Ibuprofen (Motrin Tab) 600 mg PO Q6 PRN PRN Reason: Pain, Mild (1-3) Last Admin: 01/22/17 06:08 Dose: 600 mg Insulin Detemir (Levemir) 32 units SC HS [facility] Last Admin: 01/21/17 22:07 Dose: 32 units Insulin Human Lispro (Humalog) 0 units SC ACHS [facility] PRN Reason: Protocol Last Admin: 01/21/17 22:05 Dose: Not Given Insulin Human Lispro (Humalog) 10 units SC ACTID [facility] Last Admin: 01/21/17 17:23 Dose: 10 units Lisinopril (Zestril) 20 mg PO DAILY [facility] Last Admin: 01/21/17 08:54 Dose: 20 mg Metformin HCl (Glucophage) 1,000 mg PO BIDWM [facility] Last Admin: 01/21/17 17:21 Dose: 1,000 mg Multivitamins/Minerals (Therapeutic-M Tab) 1 tab PO DAILY [facility] Last Admin: 01/21/17 08:51 Dose: 1 tab Mupirocin (Bactroban Ointment) 1 applic TOP BID [facility] Last Admin: 01/21/17 17:20 Dose: 1 applic [id number] Ethyl Esters (Lovaza) 1 gm PO BID [facility] Last Admin: 01/21/17 17:21 Dose: 1 gm - Labs Labs: 01/21/17 11:57 01/21/17 06:20 PT 11.8 SECONDS (9.6-11.2) H 01/14/17 13:25 INR 1.13 (0.92-1.08) H 01/14/17 13:25 APTT 30.4 SECONDS (23.3-32.5) 01/14/17 13:25 - Constitutional Appears: Well, No Acute Distress - Head Exam Head Exam: ATRAUMATIC, NORMAL INSPECTION - Eye Exam Eye Exam: EOMI, Normal appearance - ENT Exam ENT Exam: Mucous Membranes Moist, Normal Exam - Neck Exam Neck Exam: Full ROM, Normal Inspection - Respiratory Exam Respiratory Exam: Clear to Ausculation Bilateral, NORMAL BREATHING PATTERN. absent: Rales, Wheezes - Cardiovascular Exam Cardiovascular Exam: Irregular Rhythm. absent: JVD - GI/Abdominal Exam GI & Abdominal Exam: Soft, Normal Bowel Sounds. absent: Tenderness - Extremities Exam Extremities Exam: Normal Capillary Refill. absent: Pedal Edema, Tenderness Additional comments: RIGHT Foot Continues to improve, now no erythema just bronzing hyperpigmentation c/w PVD. - Neurological Exam Neurological Exam: Alert, Awake, Oriented x3 - Psychiatric Exam Psychiatric exam: Normal Affect, Normal Mood - Skin Skin Exam: Dry, Warm Assessment and Plan (1) Acute osteomyelitis of right foot Assessment & Plan: Surrounding cellulitis resolved, despite cultures indicating MSSA leukocytosis occurs when Vancomycin d/c'd. Discussed w/ Dr Alejandra and agrees to d/c on Zyvox if approved by insurance. - Continue to improve glucose control - Mgmnt as per Podiatry: drsg changes - Vancomycin trough: 11.6, increased to 1.5g Q12H goal for AOM (15-20) - f/u ID Consult (Dr Alejandra): Vancomycin 1.5g Q12H, Cefepime 1g Q12H although BUN continues to increase - c/w Gabapentin for discomfort - [place] if continues with Vancomycin, but may go home if Zivox approved Status: Acute (2) Controlled type 2 diabetes mellitus with hyperglycemia Assessment & Plan: Beginning to improve on likely difficulty 2/2 to ongoing infection. TDD: 58 ( based on 01/19 useage). Readjusting as below - c/w home medications TO INCLUDE Metformin - Hypoglycemia bundle - Accu-checks - SSI, MOD w/ 10U ACTID - changed TDD: 58 (0.5kg/day) - Levemir 32U, SC, qHS Status: Chronic (3) DVT prophylaxis Assessment & Plan: Lolix 40mg, SC, Daily Status: Acute (4) Essential (primary) hypertension Assessment & Plan: Controlled, c/w home medications Status: Chronic <Deshawn Benitez - Last Filed: 01/30/17 15:53> Objective - Vital Signs/Intake and Output Vital Signs (last 24 hours): Temp Pulse Resp BP Pulse Ox 97.9 F 64 20 128/73 99 01/23/17 08:24 01/23/17 08:24 01/23/17 08:24 01/23/17 08:24 01/23/17 08:24 - Labs Labs: 01/22/17 05:50 01/22/17 05:50 PT 11.8 SECONDS (9.6-11.2) H 01/14/17 13:25 INR 1.13 (0.92-1.08) H 01/14/17 13:25 APTT 30.4 SECONDS (23.3-32.5) 01/14/17 13:25 Assessment and Plan - Assessment and Plan (Free Text) Assessment: Patient was personally seen and examined by me in rounds with residents. Available labs and diagnostic data reviewed. Case, Patient's condition and management plan discussed with residents in rounds. Agree with resident's documentation. Plan: As ordered. Deshawn Benitez MD
[2017-01-22 07:16] LABS: BLOOD UREA NITROGEN 41 mg/dl (9-20); CALCIUM 9.5 mg/dL (8.4-10.2); CARBON DIOXIDE 30 mmol/L (22-30); CHLORIDE 99 mmol/L (98-107); GFR AFRICAN-AMERICAN > 60; GLUCOSE,RANDOM 130 mg/dL (75-110); POTASSIUM 4.2 MMOL/L (3.6-5.0); SODIUM 143 mmol/l (132-148)
--- NOTE | 2017-01-22 07:54 | CP.PCM.PN ---
Subjective - Date & Time of Evaluation Date of Evaluation: 01/22/17 Time of Evaluation: 07:54 - Subjective Subjective: 71 year old male was seen resting comfortably at bedside right foot plantar ulcer. Patient is in no acute distress, AAOx3. Dressing is clean, dry, intact to right foot. He states he feels good today. Denies any pain to his lower extremities. He states he is going to rehab today and they will be able to change his dressing. He denies any n/v/f/c/sob/cp. Objective - Vital Signs/Intake and Output Vital Signs (last 24 hours): Temp Pulse Resp BP Pulse Ox 98.3 F 76 18 153/74 H 95 01/21/17 21:37 01/21/17 21:37 01/21/17 21:37 01/21/17 21:37 01/21/17 21:37 - Medications Medications: Current Medications Amlodipine Besylate (Norvasc) 10 mg PO QPM [facility] Last Admin: 01/21/17 17:21 Dose: 10 mg Artificial Tears (Artificial Tears) 2 drop OU Q6 PRN PRN Reason: Dry eyes Last Admin: 01/21/17 17:20 Dose: 2 drp Aspirin (Ecotrin) 81 mg PO QPM [facility] Last Admin: 01/21/17 17:20 Dose: 81 mg Atorvastatin Calcium (Lipitor) 20 mg PO DAILY [facility] Last Admin: 01/21/17 09:35 Dose: 20 mg Clopidogrel Bisulfate (Plavix) 75 mg PO QPM [facility] Last Admin: 01/21/17 17:21 Dose: 75 mg Dextrose (Glutose 15) 0 gm PO ONCE PRN; Protocol PRN Reason: Hypoglycemia Protocol Dextrose (Dextrose 50% Inj) 0 ml IV STAT PRN; Protocol PRN Reason: Hyglycemia Protocol Enoxaparin Sodium (Lovenox) 40 mg SC HS [facility] PRN Reason: Protocol Last Admin: 01/21/17 22:04 Dose: 40 mg Gabapentin (Neurontin) 100 mg PO TID [facility] Last Admin: 01/21/17 17:21 Dose: 100 mg Glipizide (Glucotrol Xl) 10 mg PO BID [facility] Last Admin: 01/21/17 17:21 Dose: 10 mg Glucagon (Glucagen Diagnostic Kit) 0 mg IM STAT PRN; Protocol PRN Reason: Hypoglycemia Protocol Guaifenesin/Dextromethorphan (Robitussin Dm) 10 ml PO Q6 PRN PRN Reason: Cough Last Admin: 01/18/17 08:53 Dose: 10 ml Home Med (Lisinopril/Hydrochlorothiazide [Zestoretic 20-25 Mg Tablet]) 1 tab PO BID [facility] Last Admin: 01/14/17 19:39 Dose: Not Given Home Med (Multivitamin [Multi-Vitamin Daily]) 1 tab PO DAILY [facility] Hydrochlorothiazide (Hydrodiuril) 25 mg PO DAILY [facility] Last Admin: 01/21/17 09:01 Dose: 25 mg Cefepime HCl 1 gm/ Sodium (Chloride) 100 mls @ 100 mls/hr IVPB Q12 [facility] Last Admin: 01/21/17 21:19 Dose: 100 mls/hr Vancomycin HCl 1,500 mg/ (Sodium Chloride) 250 mls @ 166.667 mls/hr IVPB Q12H [facility] Ibuprofen (Motrin Tab) 600 mg PO Q6 PRN PRN Reason: Pain, Mild (1-3) Last Admin: 01/22/17 06:08 Dose: 600 mg Insulin Detemir (Levemir) 32 units SC HS [facility] Last Admin: 01/21/17 22:07 Dose: 32 units Insulin Human Lispro (Humalog) 0 units SC ACHS [facility] PRN Reason: Protocol Last Admin: 01/21/17 22:05 Dose: Not Given Insulin Human Lispro (Humalog) 10 units SC ACTID [facility] Last Admin: 01/21/17 17:23 Dose: 10 units Lisinopril (Zestril) 20 mg PO DAILY [facility] Last Admin: 01/21/17 08:54 Dose: 20 mg Metformin HCl (Glucophage) 1,000 mg PO BIDWM [facility] Last Admin: 01/21/17 17:21 Dose: 1,000 mg Multivitamins/Minerals (Therapeutic-M Tab) 1 tab PO DAILY [facility] Last Admin: 01/21/17 08:51 Dose: 1 tab Mupirocin (Bactroban Ointment) 1 applic TOP BID [facility] Last Admin: 01/21/17 17:20 Dose: 1 applic Bvsrl-5-Viti Ethyl Esters (Lovaza) 1 gm PO BID [facility] Last Admin: 01/21/17 17:21 Dose: 1 gm - Labs Labs: 01/21/17 11:57 01/22/17 05:50 PT 11.8 SECONDS (9.6-11.2) H 01/14/17 13:25 INR 1.13 (0.92-1.08) H 01/14/17 13:25 APTT 30.4 SECONDS (23.3-32.5) 01/14/17 13:25 - Constitutional Appears: Well, Non-toxic, No Acute Distress - Extremities Exam Additional comments: Right lower extremity focused exam: VASC: DP pulse palpable 2/4, PT pulse 2/4, Temperature gradient runs warm to warm distal to proximal. NEURO: Gross sensation diminished. ORTHO: Previous TMA amputation sites noted b/l. No pain on palpation to right leg or foot. DERM: Ulceration measure approximately 0.3 cm x 0.3 cm x 0.1 cm noted on the plantar aspect of the right foot around the 4th and 5th metatarsal bases,base is granular, periwound is hyperkeratotic. No probe to bone, no drainage noted. No tenderness, no malodor noted. Right foot and Right lee are mildly erythematous with non-pitting edema with no increased warmth noted, improving. No drainage, no purulences, no fluctuance. - Neurological Exam Neurological Exam: Alert, Awake, Oriented x3 - Psychiatric Exam Psychiatric exam: Normal Affect, Normal Mood Assessment and Plan - Assessment and Plan (Free Text) Assessment: 71 year old male with right foot plantar ulcer secondary to diabetes and right lower extremity cellulits-resolved Plan: Patient examined and evaluated at bedside Chart, labs, vitals reviewed: afebrile, WBC 9.9 (01/21/17) Discussed with attending Dr. Malone Continue IV abx per ID -Cefepime 1g IVPB Q12, Vanco 1,200mg IVPB Q12 Right foot radiographs- soft tissue swelling without acute articular or osseous abnormality Wound culture: Citrobacter Diversus and staph aureus Bone scan IMPRESSION:Positive 3 phase bone scan for acute osseous process/ osteomyelitis at an in the vicinity of the stump, of cuboid and 5th metatarsal remnant. Prescription for daily dressing changes Patient to follow up with Dr. Malone in office upon D/C
[2017-01-22 08:31] VITALS: RESP 20
[2017-01-22 08:43] LABS: HEMATOCRIT 28.8 % (35.0-51.0); MEAN CORPUSCULAR HEMOGLOBIN 28.1 pg (27.0-31.0); MEAN CORPUSCULAR HGB CONC 33.1 g/dL (33.0-37.0); RED CELL DISTRIBUTION WIDTH 14.5 % (11.5-14.5); WHITE BLOOD COUNT 9.8 K/uL (4.8-10.8)
[2017-01-22] MEDS: Insulin Lispro (humaLOG) 100 Units/ml Inj SC SCH ×7 (08:47→22:04)
[2017-01-22] MEDS: GlipiZIDE 10 mg SR Tab PO SCH ×2 (08:49→16:36)
[2017-01-22] MEDS: Omega-3-Acid Ethyl Esters 1 GM Cap PO SCH ×2 (08:51→16:37)
[2017-01-22] MEDS: Cefepime 1 GM in Sodium Chloride 0.9% 100 ML IVPB SCH ×2 (08:52→20:57)
[2017-01-22] MEDS: Multivitamin With Minerals Tab PO SCH (11:09)
--- NOTE | 2017-01-22 15:01 | CP.PCM.PCO ---
Assessment/Plan - Assessment/Plan Assessment (Free Text): Per Dr. Alejandra, pt may discharged on PO Zyvox x 6 weeks if approved by insurance. Rx given to pharmacy pending insurance authorization . - Problems Patient Problems: Problem List (Active/Current) Problem Status Priority Diagnosed Code Acute osteomyelitis of right foot Acute M86.171 Cellulitis Acute L03.90 DVT prophylaxis Acute [id number]
[2017-01-22] MEDS: Enoxaparin 40 mg Syringe SC SCH (22:03)
[2017-01-22] MEDS: Insulin Detemir 100 Units/ml Inj SC SCH (22:05)
[2017-01-23] MEDS: Insulin Lispro (humaLOG) 100 Units/ml Inj SC SCH ×6 (06:51→12:15)
--- NOTE | 2017-01-23 06:57 | CP.PCM.PN ---
Subjective - Date & Time of Evaluation Date of Evaluation: 01/23/17 Time of Evaluation: 06:57 - Subjective Subjective: 71 year old male was seen resting comfortably at bedside right foot plantar ulcer. Patient is in no acute distress, AAOx3. Dressing is clean, dry, intact to right foot. He states he feels good today. Denies any pain to his lower extremities. He states that he is awaiting approval of his antibiotics before he is being transferred either home or to rehab. He denies any n/v/f/c/sob/cp. Objective - Vital Signs/Intake and Output Vital Signs (last 24 hours): Temp Pulse Resp BP Pulse Ox 98.3 F 76 20 155/73 H 97 01/22/17 21:43 01/22/17 21:43 01/22/17 21:43 01/22/17 21:43 01/22/17 21:43 - Medications Medications: Current Medications Amlodipine Besylate (Norvasc) 10 mg PO QPM [facility] Last Admin: 01/22/17 17:49 Dose: 10 mg Artificial Tears (Artificial Tears) 2 drop OU Q6 PRN PRN Reason: Dry eyes Last Admin: 01/21/17 17:20 Dose: 2 drp Aspirin (Ecotrin) 81 mg PO QPM [facility] Last Admin: 01/22/17 17:49 Dose: 81 mg Atorvastatin Calcium (Lipitor) 20 mg PO DAILY [facility] Last Admin: 01/22/17 08:53 Dose: 20 mg Clopidogrel Bisulfate (Plavix) 75 mg PO QPM [facility] Last Admin: 01/22/17 17:49 Dose: 75 mg Dextrose (Glutose 15) 0 gm PO ONCE PRN; Protocol PRN Reason: Hypoglycemia Protocol Dextrose (Dextrose 50% Inj) 0 ml IV STAT PRN; Protocol PRN Reason: Hyglycemia Protocol Enoxaparin Sodium (Lovenox) 40 mg SC HS [facility]ER PRN Reason: Protocol Last Admin: 01/22/17 22:03 Dose: 40 mg Gabapentin (Neurontin) 100 mg PO TID [facility] Last Admin: 01/22/17 16:36 Dose: 100 mg Glipizide (Glucotrol Xl) 10 mg PO BID [facility] Last Admin: 01/22/17 16:36 Dose: 10 mg Glucagon (Glucagen Diagnostic Kit) 0 mg IM STAT PRN; Protocol PRN Reason: Hypoglycemia Protocol Guaifenesin/Dextromethorphan (Robitussin Dm) 10 ml PO Q6 PRN PRN Reason: Cough Last Admin: 01/18/17 08:53 Dose: 10 ml Home Med (Lisinopril/Hydrochlorothiazide [Zestoretic 20-25 Mg Tablet]) 1 tab PO BID [facility] Last Admin: 01/14/17 19:39 Dose: Not Given Home Med (Multivitamin [Multi-Vitamin Daily]) 1 tab PO DAILY [facility] Hydrochlorothiazide (Hydrodiuril) 25 mg PO DAILY [facility] Last Admin: 01/22/17 08:53 Dose: 25 mg Cefepime HCl 1 gm/ Sodium (Chloride) 100 mls @ 100 mls/hr IVPB Q12 [facility] Last Admin: 01/22/17 20:57 Dose: 100 mls/hr Vancomycin HCl 1,500 mg/ (Sodium Chloride) 500 mls @ 333.333 mls/hr IVPB Q12 [facility] Last Admin: 01/22/17 22:01 Dose: 333.333 mls/hr Ibuprofen (Motrin Tab) 600 mg PO Q6 PRN PRN Reason: Pain, Mild (1-3) Last Admin: 01/22/17 22:01 Dose: 600 mg Insulin Detemir (Levemir) 32 units SC HS [facility] Last Admin: 01/22/17 22:05 Dose: 32 units Insulin Human Lispro (Humalog) 0 units SC ACHS [facility] PRN Reason: Protocol Last Admin: 01/23/17 06:51 Dose: Not Given Insulin Human Lispro (Humalog) 10 units SC ACTID [facility] Last Admin: 01/22/17 16:34 Dose: Not Given Linezolid (Zyvox) 600 mg PO Q12@1700,0500 [facility] Last Admin: 01/23/17 05:26 Dose: 600 mg Lisinopril (Zestril) 20 mg PO DAILY [facility] Last Admin: 01/22/17 08:56 Dose: 20 mg Metformin HCl (Glucophage) 1,000 mg PO BIDWM [facility] Last Admin: 01/22/17 16:36 Dose: 1,000 mg Multivitamins/Minerals (Therapeutic-M Tab) 1 tab PO DAILY [facility] Last Admin: 01/22/17 11:09 Dose: 1 tab Mupirocin (Bactroban Ointment) 1 applic TOP BID [facility] Last Admin: 01/22/17 18:58 Dose: 1 applic Biecb-4-Anir Ethyl Esters (Lovaza) 1 gm PO BID [facility] Last Admin: 01/22/17 16:37 Dose: 1 gm - Labs Labs: 01/22/17 05:50 01/22/17 05:50 PT 11.8 SECONDS (9.6-11.2) H 01/14/17 13:25 INR 1.13 (0.92-1.08) H 01/14/17 13:25 APTT 30.4 SECONDS (23.3-32.5) 01/14/17 13:25 - Constitutional Appears: Well, Non-toxic, No Acute Distress - Extremities Exam Additional comments: Right lower extremity focused exam: VASC: DP pulse palpable 2/4, PT pulse 2/4, Temperature gradient runs warm to warm distal to proximal. NEURO: Gross sensation diminished. ORTHO: Previous TMA amputation sites noted b/l. No pain on palpation to right leg or foot. DERM: Ulceration measure approximately 0.2 cm x 0.2 cm x 0.1 cm noted on the plantar aspect of the right foot around the 4th and 5th metatarsal bases,base is granular, periwound is hyperkeratotic. No probe to bone, no drainage noted. No tenderness, no malodor noted. Right foot and Right lee are mildly erythematous with non-pitting edema with no increased warmth noted, improving. No drainage, no purulences, no fluctuance. - Neurological Exam Neurological Exam: Alert, Awake, Oriented x3 - Psychiatric Exam Psychiatric exam: Normal Affect, Normal Mood Assessment and Plan - Assessment and Plan (Free Text) Assessment: 71 year old male with right foot plantar ulcer secondary to diabetes and right lower extremity cellulits-resolved Plan: Patient examined and evaluated at bedside Chart, labs, vitals reviewed: afebrile, WBC 9.9 (01/21/17) Discussed with attending Dr. Malone Continue IV abx per ID Right foot radiographs- soft tissue swelling without acute articular or osseous abnormality Wound culture: Citrobacter Diversus and staph aureus Bone scan IMPRESSION:Positive 3 phase bone scan for acute osseous process/ osteomyelitis at an in the vicinity of the stump, of cuboid and 5th metatarsal remnant. Dressing changed with bactorban, 4x4 gauze, Kerlix Prescription for daily dressing changes Patient to follow up with Dr. Malone in office upon D/C
[2017-01-23 08:24] VITALS: BP 128/73; PULSE 64; TEMP 97.9; O2SAT 99
[2017-01-23] MEDS: Cefepime 1 GM in Sodium Chloride 0.9% 100 ML IVPB SCH (08:27)
[2017-01-23] MEDS: Omega-3-Acid Ethyl Esters 1 GM Cap PO SCH (08:28)
[2017-01-23] MEDS: Multivitamin With Minerals Tab PO SCH (08:29)
--- NOTE | 2017-01-23 08:32 | PN ---
DATE: 01/23/2017 The patient seen and examined. Interim events noted. Consults noted, appreciated. Infectious disea se followup and interventions noted and appreciated. The patient remains on regular medical floor. The patient feels okay. No specific complaint. No chest pain, no shortness of breath. PHYSICAL EXAMINATION: GENERAL: The patient is in no acute distress. VITAL SIGNS: Stable. HEART: S1, S2 normal, regular. LUNGS: Good bilateral air entry. ABDOMEN: Soft, nontender. EXTREMITIES: No calf swelling, no tenderness, no acute ischemia. CENTRAL NERVOUS SYSTEM: Essentially unchanged . DIAGNOSTIC DATA: Available reviewed. Overall, patient's general medical condition is stable. The patient will require long-term antibioti c. Approval for antibiotics submitted to insurance company, awaiting response. Overall, patient is medically stable. PLAN: As ordered. Deshawn Benitez MD cc: [id number] TT: 01/23/2017 08:32:10 Confirmation # [id number] Dictation # [id number]
[2017-01-23] MEDS: GlipiZIDE 10 mg SR Tab PO SCH (08:35)
[2017-01-23] MEDS: Artificial Tears Opht Soln OU PRN (12:13)
--- NOTE | 2017-01-23 13:38 | CP.PCM.PN ---
Subjective - Date & Time of Evaluation Date of Evaluation: 01/23/17 Time of Evaluation: 07:00 - Subjective Subjective: rrx in progress Objective - Vital Signs/Intake and Output Vital Signs (last 24 hours): Temp Pulse Resp BP Pulse Ox 97.9 F 64 20 128/73 99 01/23/17 08:24 01/23/17 08:24 01/23/17 08:24 01/23/17 08:24 01/23/17 08:24 - Medications Medications: Current Medications Amlodipine Besylate (Norvasc) 10 mg PO QPM [facility] Last Admin: 01/22/17 17:49 Dose: 10 mg Artificial Tears (Artificial Tears) 2 drop OU Q6 PRN PRN Reason: Dry eyes Last Admin: 01/23/17 12:13 Dose: 2 drp Aspirin (Ecotrin) 81 mg PO QPM [facility] Last Admin: 01/22/17 17:49 Dose: 81 mg Atorvastatin Calcium (Lipitor) 20 mg PO DAILY [facility] Last Admin: 01/23/17 08:36 Dose: 20 mg Clopidogrel Bisulfate (Plavix) 75 mg PO QPM [facility] Last Admin: 01/22/17 17:49 Dose: 75 mg Dextrose (Glutose 15) 0 gm PO ONCE PRN; Protocol PRN Reason: Hypoglycemia Protocol Dextrose (Dextrose 50% Inj) 0 ml IV STAT PRN; Protocol PRN Reason: Hyglycemia Protocol Enoxaparin Sodium (Lovenox) 40 mg SC HS [facility] PRN Reason: Protocol Last Admin: 01/22/17 22:03 Dose: 40 mg Gabapentin (Neurontin) 100 mg PO TID [facility] Last Admin: 01/23/17 12:13 Dose: 100 mg Glipizide (Glucotrol Xl) 10 mg PO BID [facility] Last Admin: 01/23/17 08:35 Dose: 10 mg Glucagon (Glucagen Diagnostic Kit) 0 mg IM STAT PRN; Protocol PRN Reason: Hypoglycemia Protocol Guaifenesin/Dextromethorphan (Robitussin Dm) 10 ml PO Q6 PRN PRN Reason: Cough Last Admin: 01/18/17 08:53 Dose: 10 ml Home Med (Lisinopril/Hydrochlorothiazide [Zestoretic 20-25 Mg Tablet]) 1 tab PO BID [facility] Last Admin: 01/14/17 19:39 Dose: Not Given Home Med (Multivitamin [Multi-Vitamin Daily]) 1 tab PO DAILY [facility] Hydrochlorothiazide (Hydrodiuril) 25 mg PO DAILY [facility] Last Admin: 01/23/17 08:36 Dose: 25 mg Ibuprofen (Motrin Tab) 600 mg PO Q6 PRN PRN Reason: Pain, Mild (1-3) Last Admin: 01/22/17 22:01 Dose: 600 mg Insulin Detemir (Levemir) 32 units SC HS [facility] Last Admin: 01/22/17 22:05 Dose: 32 units Insulin Human Lispro (Humalog) 0 units SC ACHS [facility] PRN Reason: Protocol Last Admin: 01/23/17 12:15 Dose: Not Given Insulin Human Lispro (Humalog) 10 units SC ACTID [facility] Last Admin: 01/23/17 12:15 Dose: 10 units Linezolid (Zyvox) 600 mg PO Q12@1700,0500 [facility] Last Admin: 01/23/17 05:26 Dose: 600 mg Lisinopril (Zestril) 40 mg PO DAILY [facility] Last Admin: 01/23/17 08:34 Dose: 40 mg Metformin HCl (Glucophage) 1,000 mg PO BIDWM [facility] Last Admin: 01/23/17 08:28 Dose: 1,000 mg Multivitamins/Minerals (Therapeutic-M Tab) 1 tab PO DAILY [facility] Last Admin: 01/23/17 08:29 Dose: 1 tab Mupirocin (Bactroban Ointment) 1 applic TOP BID [facility] Last Admin: 01/23/17 08:29 Dose: 1 applic Cvzne-2-Eaqe Ethyl Esters (Lovaza) 1 gm PO BID [facility] Last Admin: 01/23/17 08:28 Dose: 1 gm - Labs Labs: 01/22/17 05:50 01/22/17 05:50 PT 11.8 SECONDS (9.6-11.2) H 01/14/17 13:25 INR 1.13 (0.92-1.08) H 01/14/17 13:25 APTT 30.4 SECONDS (23.3-32.5) 01/14/17 13:25 - Constitutional Appears: Non-toxic, Chronically Ill - Head Exam Head Exam: NORMOCEPHALIC - Eye Exam Eye Exam: PERRL. absent: Scleral icterus - ENT Exam ENT Exam: Mucous Membranes Dry - Neck Exam Neck Exam: absent: Lymphadenopathy - Respiratory Exam Respiratory Exam: Decreased Breath Sounds, Rhonchi - Cardiovascular Exam Cardiovascular Exam: REGULAR RHYTHM, +S1, +S2 - GI/Abdominal Exam GI & Abdominal Exam: Distended, Soft. absent: Tenderness Assessment and Plan (1) Cellulitis Status: Acute (2) Diabetic foot ulcers Status: Acute (3) Controlled type 2 diabetes mellitus with hyperglycemia Status: Chronic (4) Essential (primary) hypertension Status: Chronic (5) Mixed hyperlipidemia Status: Chronic - Assessment and Plan (Free Text) Assessment: cont rx as out pt
== END 2017-01-23 15:30 | disposition home or self-care (01) | DRG 540 ==
LOC: H.ER 11:12 → H.ERHOLD 16:07 → H.MEDSURG1 20:49
PROVIDERS: ADMIT Internal Medicine; ATTEND Internal Medicine
PROC: 02HV33Z Insertion of Infusion Device into Superior Vena Cava, Percutaneous Approach (ICD-10-PCS; principal; 2017-01-20)
PROC: B518ZZA Fluoroscopy of Superior Vena Cava, Guidance (ICD-10-PCS; 2017-01-20)
PROC: 3E04329 Introduction of Other Anti-infective into Central Vein, Percutaneous Approach (ICD-10-PCS; 2017-01-20)
DX: M86.171 Other acute osteomyelitis, right ankle and foot (principal); L03.115 Cellulitis of right lower limb; E11.51 Type 2 diabetes mellitus with diabetic peripheral angiopathy without gangrene; E11.621 Type 2 diabetes mellitus with foot ulcer; E11.65 Type 2 diabetes mellitus with hyperglycemia; L97.519 Non-pressure chronic ulcer of other part of right foot with unspecified severity; B95.61 Methicillin susceptible Staphylococcus aureus infection as the cause of diseases classified elsewhere; E78.2 Mixed hyperlipidemia; I10 Essential (primary) hypertension; Z89.432 Acquired absence of left foot; Z89.431 Acquired absence of right foot; Z87.891 Personal history of nicotine dependence